=== PATIENT | male | born 1995 | race Asian ===

== ENCOUNTER 2016-10-23 11:40 | Emergency (ER) | payer OTHER ==
[2016-10-23 11:44] VITALS: TEMP 97.2
[2016-10-23] MEDS ORDERED: NS 1,000 ML IV ONE ×2 (11:59→13:18)
[2016-10-23] MEDS ORDERED: ONDANSETRON 4 MG/2 ML VIAL IVP ONE (11:59)
[2016-10-23] MEDS ORDERED: FAMOTIDINE 20 MG/NACL 50 ML IV ONE (11:59)
[2016-10-23] MEDS ORDERED: HYDROmorphONE/DILAUDID 1 MG/ML SYR IVP ONE ×2 (11:59→13:18)
[2016-10-23] MEDS ORDERED: PROMETHAZINE HCL 25 MG/ML VIAL IVP ONE (11:59)
[2016-10-23 12:21] LABS: % IMMATURE GRANULYOCYTES 0.3 % (0.0-1.1); ABSOLUTE IMMATURE GRANULOCYTES 0.02 10^3/uL (0.00-0.10); ADD DIFF? NO; ADD MORPH? NO; ADD SCAN? NO; ATYPICAL LYMPHOCYTE FLAG 30 (0-99); FRAGMENT RBC FLAG 0 (0-99); HEMOGLOBIN 15.9 g/dL (13.7-17.5); LEFT SHIFT FLG 0 (0-99); LIPEMIA HEMOLYSIS FLAG 90 (0-99); MEAN CELL HEMOGLOBIN 30.9 pg (27.9-34.1); MEAN CELL HEMOGLOBIN CONCENTR. 34.6 g/dL (32.4-36.7); MEAN CELL VOLUME 89.5 fL (81.5-99.8); MEAN PLATELET VOLUME 9.3 fL (8.7-11.7); PLATELET CLUMPS FLAG 10 (0-99); PLATELET COUNT 236 10^3/uL (150-400); RED BLOOD CELL COUNT 5.14 10^6/uL (4.40-6.38); RED CELL DISTRIBUTION WIDTH 11.4 % (11.5-15.2)
[2016-10-23 12:39] LABS: ALANINE AMINOTRANSFERASE 55 IU/L (21-72); ALBUMIN 5.1 g/dL (3.5-5.0); ALKALINE PHOSPHATASE 94 IU/L (38-126); ANION GAP 15 mEq/L (8-16); ASPARTATE AMINOTRANSFERASE 62 IU/L (17-59); BILIRUBIN,TOTAL 2.6 mg/dL (0.1-1.4); BILIRUBIN-CONJUGATED 0.3 mg/dL (0.0-0.5); BILIRUBIN-UNCONJUGATED 2.3 mg/dL (0.0-1.1); CALCIUM 10.4 mg/dL (8.5-10.4); CARBON DIOXIDE 29 mEq/l (22-31); CHLORIDE 99 mEq/L (97-110); GLOMERULAR FILTRATION RATE > 60; GLUCOSE 116 mg/dL (70-100); POTASSIUM 4.3 mEq/L (3.5-5.2); SODIUM 143 mEq/L (134-144); TOTAL PROTEIN 8.8 g/dL (6.3-8.2)
[2016-10-23] MEDS ORDERED: HALOPERIDOL LACT 5 MG/ML INJ IVP ONE (13:18)
--- NOTE | 2016-10-23 14:08 | EDPHY ---
H & P Time Seen by Provider: 10/23/16 11:57 HPI/ROS: HPI Vomiting. History of cyclic vomiting. 21-year-old male by private vehicle. Patient has a history marijuana associated cyclic vomiting. Patient reports that since last night is been vomiting uncontrollably. He has not been able to keep any fluids down. He reports this is typical of his previous episodes of cyclic vomiting. He denies any change in diet or foreign travel. He describes having mid to upper crampy abdominal discomfort which again is typical of his previous episodes of cyclic vomiting exacerbation. ROS: Constitutional: No fever, no chills. No weakness. Eyes: No discharge. No changes in vision. ENT: No sore throat. No nasal congestion or rhinorrhea. Respiratory: No cough. No shortness of breath. Cardiac: No chest pain, no palpitations. Gastrointestinal: As above, no diarrhea. Genitourinary: No hematuria. No dysuria or increased frequency with urination. Musculoskeletal: No back pain. No neck pain. No myalgias or arthralgias. Skin: No rashes. Neurological: No headache. No focal weakness or altered sensation. Past medical history: As above. Right-sided nephrectomy as a child, H pylori, gastritis, cyclic vomiting, marijuana smoker. Social history: Marijuana smoker. No alcohol. Here by himself. Physical Exam: General Appearance: Alert, intermittently dry heaving.. This patient is responding to questions appropriately and in full sentences. This patient appears well-hydrated and well-nourished. Eyes: Pupils equal and round no pallor or injection. No lid edema, erythema or injection. Respiratory: There are no retractions, lungs are clear to auscultation with good air movement bilaterally. Cardiovascular: Regular rate and rhythm. No murmur. Gastrointestinal: Abdomen is soft with vague mild tenderness on palpation of the mid and upper abdomen, no masses, bowel sounds normal. No focal tenderness at McBurney's point. No Crystal sign. Neurological: Motor sensory function is grossly intact. Cranial nerves are normal. Gait is normal. Skin: Warm and dry, no rashes. Musculoskeletal: Neck is supple and nontender. Extremities are symmetrical. All joints range without pain or impingement. Psychiatric: No agitation. No depression. Database: EKG: Imaging: Procedures: Emergency department course: IV placed. He was placed on a monitor. He was started on IV normal saline with 1 L to be given over the next hour. He was initially given 0.5 mg of IV hydromorphone, 4 mg of IV Zofran, 20 mg of IV Pepcid and 6.25 mg of IV Phenergan. 1:20 p.m., patient re-evaluated. He states that he is feeling better but is still having nausea and crampy mid abdominal discomfort. I discussed the results of his laboratory work with him. He is refusing an ultrasound because he has a follow-up appointment with his assembler piano early next week and he will likely have a ultrasound at that time as needed. He states again that this presentation in the emergency department is again typical of his previous exacerbations of cyclic vomiting. He reports that his LFTs and bilirubin levels are also slightly elevated in association with these exacerbations. When I asked the patient what helps his cyclic vomiting resolved he responded to me lots of IV pain medication and IV fluids. He was given 1 mg of IV hydromorphone and 2.5 mg of IV Haldol. 2:05 p.m., patient re-evaluated. He is sleeping. He is easily arousable. Repeat abdominal exam he is soft, nontender nondistended. He has been able to take some fluids orally without issue. He does feel comfortable going home at this time. I feel he is safe for discharge. Follow-up and return to emergency department precautions discussed with him. All of his questions were answered. He was discharged in good condition. He is to follow up with his assembler piano early this coming week. He has a scheduled appointment on Wednesday. Differential Diagnosis: The differential diagnosis on this patient includes but is not limited to cyclic vomiting syndrome. Bowel obstruction, volvulus, appendicitis, cholecystitis, pancreatitis unlikely. This represents a partial list of diagnoses considered. These considerations are based on history, physical exam , past history, reassessment and diagnostic testing. Smoking Status: Current some day smoker Constitutional: Initial Vital Signs Temperature (C) 36.2 C 10/23/16 11:41 Heart Rate 68 10/23/16 11:41 Respiratory Rate 16 10/23/16 11:41 Blood Pressure 145/93 H 10/23/16 11:41 O2 Sat (%) 94 10/23/16 11:41 O2 Delivery Mode Room Air Allergies/Adverse Reactions: No Known Allergies Allergy (Verified 05/06/16 09:37) Home Medications: Medication Instructions Recorded Promethazine HCl [Phenergan] 25 mg PO Q6 #10 tab 05/06/16 Ondansetron Odt [Zofran Odt 4 mg 4 mg PO Q4PRN PRN #10 tab 10/23/16 (*)] Promethazine HCl [Phenergan 25mg 25 mg PO Q4-6PRN PRN #12 tab 10/23/16 (*)] Medical Decision Making - Data Points Laboratory Results: Laboratory Results 10/23/16 12:10 10/23/16 12:10 10/23/16 12:10 WBC 7.30 10^3/uL (3.80-9.50) RBC 5.14 10^6/uL (4.40-6.38) Hgb 15.9 g/dL (13.7-17.5) Hct 46.0 % (40.0-51.0) MCV 89.5 fL (81.5-99.8) MCH 30.9 pg (27.9-34.1) MCHC 34.6 g/dL (32.4-36.7) RDW 11.4 L % (11.5-15.2) Plt Count 236 10^3/uL (150-400) MPV 9.3 fL (8.7-11.7) Neut % (Auto) 71.4 % (39.3-74.2) Lymph % (Auto) 23.7 % (15.0-45.0) [place] % (Auto) 3.6 L % (4.5-13.0) Eos % (Auto) 0.7 % (0.6-7.6) Baso % (Auto) 0.3 % (0.3-1.7) Nucleat RBC Rel Count 0.0 % (0.0-0.2) Absolute Neuts (auto) 5.22 10^3/uL (1.70-6.50) Absolute Lymphs (auto) 1.73 10^3/uL (1.00-3.00) Absolute Monos (auto) 0.26 L 10^3/uL (0.30-0.80) Absolute Eos (auto) 0.05 10^3/uL (0.03-0.40) Absolute Basos (auto) 0.02 10^3/uL (0.02-0.10) Absolute Nucleated RBC 0.00 10^3/uL (0-0.01) Immature Gran % 0.3 % (0.0-1.1) Immature Gran # 0.02 10^3/uL (0.00-0.10) Sodium 143 mEq/L (134-144) Potassium 4.3 mEq/L (3.5-5.2) Chloride 99 mEq/L (97-110) Carbon Dioxide 29 mEq/l (22-31) Anion Gap 15 mEq/L (8-16) BUN 20 mg/dL (7-23) Creatinine 1.0 mg/dL (0.7-1.3) Estimated GFR > 60 Glucose 116 H mg/dL (70-100) Calcium 10.4 mg/dL (8.5-10.4) Total Bilirubin 2.6 H mg/dL (0.1-1.4) Conjugated Bilirubin 0.3 mg/dL (0.0-0.5) Unconjugated Bilirubin 2.3 H mg/dL (0.0-1.1) AST 62 H IU/L (17-59) ALT 55 IU/L (21-72) Alkaline Phosphatase 94 IU/L (38-126) Total Protein 8.8 H g/dL (6.3-8.2) Albumin 5.1 H g/dL (3.5-5.0) Lipase 52.0 IU/L (23-300) Medications Given: Discontinued Medications Haloperidol Lactate (Haldol Injection) 2.5 mg IVP EDNOW ONE Stop: 10/23/16 13:19 Last Admin: 10/23/16 13:40 Dose: 2.5 mg Hydromorphone HCl (Dilaudid) 0.5 mg IVP EDNOW ONE Stop: 10/23/16 12:00 Last Admin: 10/23/16 12:28 Dose: 0.5 mg Hydromorphone HCl (Dilaudid) 1 mg IVP EDNOW ONE Stop: 10/23/16 13:19 Last Admin: 10/23/16 13:40 Dose: 1 mg Sodium Chloride (Ns) 1,000 mls @ 0 mls/hr IV ONCE ONE PRN Reason: Wide Open Stop: 01/06/17 12:00 Last Admin: 10/23/16 12:28 Dose: 1,000 mls Famotidine/Sodium Chloride (Pepcid 20 Mg (Premix)) 50 mls @ 200 mls/hr IV EDNOW ONE Stop: 10/23/16 12:13 Last Admin: 10/23/16 12:28 Dose: 50 mls Sodium Chloride (Ns) 1,000 mls @ 0 mls/hr IV ONCE ONE PRN Reason: Wide Open Stop: 10/23/16 13:19 Last Admin: 10/23/16 13:40 Dose: 1,000 mls Ondansetron HCl (Zofran) 4 mg IVP EDNOW ONE Stop: 10/23/16 12:00 Last Admin: 10/23/16 12:29 Dose: 4 mg Promethazine HCl (Phenergan Injection) 6.25 mg IVP EDNOW ONE Stop: 10/23/16 12:00 Last Admin: 10/23/16 12:29 Dose: 6.25 mg Departure - Departure Disposition: Home, Routine, Self-Care Clinical Impression: Vomiting, History of cyclic vomiting syndrome Condition: Good Instructions: Acute Nausea and Vomiting (ED) Additional Instructions: Read and follow provided instructions. Follow-up with your assembler piano early next week as scheduled. Take medication as prescribed only. Return to the emergency department for return of vomiting and inability to keep fluids down despite medications, worsening abdominal pain, fever, bloody stool or other serious concerns. Referrals: NONE *PRIMARY CARE P,. [Primary Care Provider] - As per Instructions Prescriptions: Promethazine HCl [Phenergan 25mg (*)] 25 mg PO Q4-6PRN PRN #12 tab PRN Reason: For Nausea & Vomiting Ondansetron Odt [Zofran Odt 4 mg (*)] 4 mg PO Q4PRN PRN #10 tab PRN Reason: For Nausea & Vomiting
[2016-10-23 14:29] VITALS: BP 105/67; PULSE 16; RESP 45; O2SAT 94
== END 2016-10-23 14:28 | disposition home or self-care (01) ==
DX: R11.10 Vomiting, unspecified (principal); F17.200 Nicotine dependence, unspecified, uncomplicated
CPT/HCPCS: 96365; J1170; J2405; J2550

== ENCOUNTER 2017-04-29 20:27 | Emergency (ER) | payer OTHER ==
[2017-04-29 20:34] VITALS: TEMP 98.8
[2017-04-29] MEDS ORDERED: ONDANSETRON 4 MG/2 ML VIAL ONE (21:12)
[2017-04-29] MEDS ORDERED: NS 1,000 ML IV ONE ×2 (21:19→21:33)
[2017-04-29] MEDS ORDERED: ONDANSETRON 4 MG/2 ML VIAL IVP ONE (21:19)
[2017-04-29] MEDS ORDERED: HYDROmorphONE/DILAUDID 1 MG/ML SYR IVP ONE (21:33)
[2017-04-29 21:41] LABS: % IMMATURE GRANULYOCYTES 0.3 % (0.0-1.1); ABSOLUTE IMMATURE GRANULOCYTES 0.02 10^3/uL (0.00-0.10); ADD DIFF? NO; ADD MORPH? NO; ADD SCAN? NO; ATYPICAL LYMPHOCYTE FLAG 20 (0-99); FRAGMENT RBC FLAG 0 (0-99); HEMATOCRIT 42.4 % (40.0-51.0); HEMOGLOBIN 14.8 g/dL (13.7-17.5); LEFT SHIFT FLG 0 (0-99); LIPEMIA HEMOLYSIS FLAG 90 (0-99); MEAN CELL HEMOGLOBIN 31.6 pg (27.9-34.1); MEAN CELL HEMOGLOBIN CONCENTR. 34.9 g/dL (32.4-36.7); MEAN CELL VOLUME 90.6 fL (81.5-99.8); MEAN PLATELET VOLUME 10.1 fL (8.7-11.7); PLATELET CLUMPS FLAG 0 (0-99); PLATELET COUNT 238 10^3/uL (150-400); RED BLOOD CELL COUNT 4.68 10^6/uL (4.40-6.38); RED CELL DISTRIBUTION WIDTH 11.8 % (11.5-15.2)
[2017-04-29 22:13] LABS: ALANINE AMINOTRANSFERASE 41 IU/L (21-72); ALBUMIN 4.8 g/dL (3.5-5.0); ALKALINE PHOSPHATASE 74 IU/L (38-126); ANION GAP 15 mEq/L (8-16); ASPARTATE AMINOTRANSFERASE 43 IU/L (17-59); BILIRUBIN-CONJUGATED 0.5 mg/dL (0.0-0.5); BILIRUBIN-UNCONJUGATED 2.5 mg/dL (0.0-1.1); CALCIUM 9.9 mg/dL (8.5-10.4); CARBON DIOXIDE 22 mEq/l (22-31); CHLORIDE 105 mEq/L (97-110); CREATININE 0.9 mg/dL (0.7-1.3); GLOMERULAR FILTRATION RATE > 60; GLUCOSE 124 mg/dL (70-100); POTASSIUM 4.1 mEq/L (3.5-5.2); SODIUM 142 mEq/L (134-144); TOTAL PROTEIN 7.7 g/dL (6.3-8.2)
[2017-04-29] MEDS ORDERED: ONDANSETRON 4MG PREPACK#2 BTL TAKEHOME ONE (22:57)
--- NOTE | 2017-04-29 22:57 | EDPHY ---
H & P Stated Complaint: n/v/abd pain x 24 hrs - Medical/Surgical History Hx Asthma: No Hx Chronic Respiratory Disease: No Hx Diabetes: No Hx Cardiac Disease: No Hx Renal Disease: Yes Hx Cirrhosis: No Hx Alcoholism: No Hx HIV/AIDS: No Hx Splenectomy or Spleen Trauma: No Other PMH: Kidney cancer as child, R nephrectomy, H pylori/GASTRITIS, MJ smoker - Social History Smoking Status: Current some day smoker HPI/ROS: Chief complaint: Nausea and vomiting with abdominal pain History of present illness: This is a 22-year-old male who presents to the emergency department for evaluation and treatment of nausea and vomiting with associated abdominal pain. Patient reports the onset of symptoms over the last day. The symptoms have been persistent. He states in addition he has had some mild diarrhea. The vomiting and diarrhea is described as nonbloody. He denies associated fevers or other associated signs or symptoms. Patient does have a history of recurrent abdominal pain with nausea and vomiting. It is thought possibly to be secondary to his marijuana use. However he states he has not used marijuana the last week. He does state this is a typical exacerbation. Review of systems: A 10 point review of systems was obtained and other than described above was negative (Medardo Mack) - Physical Exam Exam: General Appearance: Alert, resting comfortably in bed. Eyes: Pupils equal and round no pallor or injection. ENT, Mouth: Mucous membranes moist. Respiratory: There are no retractions, lungs are clear to auscultation. Cardiovascular: Bradycardic with regular rhythm. Gastrointestinal: Bowel sounds are normal. Abdomen is soft, nondistended, nontender to palpation. Neurological: Alert and oriented x4. Strength and sensation intact and symmetrical. Skin: Warm and dry, no rashes. Musculoskeletal: Neck is supple nontender. Extremities are symmetrical, full range of motion. Psychiatric: Patient is oriented X 3, there is no agitation. (Medardo Mack) Constitutional: Initial Vital Signs Temperature (C) 37.1 C 04/29/17 20:32 Heart Rate 55 L 04/29/17 20:32 Respiratory Rate 18 04/29/17 20:32 Blood Pressure 158/92 H 04/29/17 20:32 O2 Sat (%) 99 04/29/17 20:32 O2 Delivery Mode Room Air Allergies/Adverse Reactions: No Known Allergies Allergy (Verified 07/13/17 20:34) Home Medications: Medication Instructions Recorded NK [No Known Home Meds] 04/29/17 Medical Decision Making - Diagnostics EKG Interpretation: 12 lead EKG is interpreted in Trace master View by emergency department physician. Sinus bradycardia. (Lidia Stokes) ED Course/Re-evaluation: Patient is discussed with my secondary supervising physician Dr. Lidia Stokes. Patient presents to the emergency department for nausea and vomiting with abdominal pain. On presentation he is nontoxic. He has benign serial abdominal exams performed throughout his stay in the emergency room. Laboratory studies are largely unremarkable. He is symptomatically treated with improvement in symptoms. He is tolerating oral challenges without difficulty. He has a history of recurrent nausea and vomiting with abdominal pain. I do not believe further evaluation is warranted in the emergency room. He is comfortable being discharged home. He does have a ux researcher, he cannot remember his name right now but will follow-up with him next week. He is comfortable with this plan. In addition patient is noted to be significantly bradycardic down to 30s. He has no symptoms in relation to this such as fatigue, dizziness, lightheadedness. Review of previous medical records show that he has been significantly bradycardic in the past. EKG is obtained without findings necessitating further emergency department intervention or inpatient management. I have discussed with him his persistent bradycardia. I have recommend he follow up with Cardiology for further evaluation of this. He is given referral information. He has voiced understanding and agreement with this plan as well. Return precautions are given. (Medardo Mack) The patient was evaluated and managed by the physician buyer assistant. I have reviewed this chart and I agree with the findings and plan of care as documented , as indicated by my signature. I am the secondary supervising physician. I have reviewed the patient's EKG. (Lidia Stokes) Differential Diagnosis: Included but not limited to cyclic vomiting syndrome, gastritis, gastroenteritis , biliary tract disease, pancreatitis, colitis (Medardo Mack) - Data Points Laboratory Results: Laboratory Results 04/29/17 21:05 04/29/17 21:05 Medications Given: Discontinued Medications Fentanyl (Sublimaze) 50 mcg IVP EDNOW ONE Stop: 04/29/17 23:43 Last Admin: 04/29/17 23:43 Dose: 50 mcg Hydromorphone HCl (Dilaudid) 0.5 mg IVP EDNOW ONE Stop: 04/29/17 21:34 Last Admin: 04/29/17 22:11 Dose: 0.5 mg Sodium Chloride (Ns) 1,000 mls @ 3,000 mls/hr IV ONCE ONE Stop: 04/29/17 21:38 Last Admin: 04/29/17 21:19 Dose: 1,000 mls Sodium Chloride (Ns) 1,000 mls @ 0 mls/hr IV EDNOW ONE; Wide Open PRN Reason: Protocol Stop: 04/29/17 21:34 Last Admin: 04/29/17 22:11 Dose: 1,000 mls Ondansetron HCl (Zofran) 4 mg IVP EDNOW ONE Stop: 04/29/17 21:20 Last Admin: 04/29/17 21:20 Dose: 4 mg Ondansetron HCl (Zofran Odt 4 Mg Prepack#2) 1 btl TAKEHOME EDNOW ONE Stop: 04/29/17 22:58 Last Admin: 04/30/17 00:28 Dose: Not Given Departure - Departure Disposition: Home, Routine, Self-Care Clinical Impression: Vomiting, Abdominal pain, Bradycardia Condition: Good Instructions: Acute Nausea and Vomiting (ED), Acute Abdominal Pain (ED), Bradycardia (ED) Additional Instructions: Follow-up with your ux researcher for continued evaluation and care Follow-up with Cardiology for your slow pulse rate If symptoms worsen or new symptoms develop return to the emergency room for recheck Referrals: Madai Jurado PA [Primary Care Provider] - As per Instructions Samuel Sears MD [Medical Doctor] - As per Instructions
[2017-04-29] MEDS ORDERED: fentaNYL 100 MCG/2 ML INJ ONE (23:22)
--- NOTE | 2017-04-29 23:26 | CPEKG ---
Heart Rate: 49 RR Interval: 1224 P-R Interval: 152 QRSD Interval: 110 QT Interval: 508 QTC Interval: 459 P [place]: 80 QRS [place]: 79 T Wave [place]: 77 EKG Severity - ABNORMAL ECG - EKG Impression: SINUS BRADYCARDIA EKG Impression: ATRIAL PREMATURE COMPLEX EKG Impression: NONSPECIFIC INTRAVENTRICULAR CONDUCTION DELAY Electronically Signed By: Lidia Stokes 30-Apr-2017 00:27:54
[2017-04-29] MEDS ORDERED: fentaNYL 100 MCG/2 ML INJ IVP ONE (23:42)
[2017-04-30 00:18] VITALS: RESP 14
[2017-04-30 00:19] VITALS: BP 155/94; PULSE 52; O2SAT 100
== END 2017-04-30 00:31 | disposition home or self-care (01) ==
DX: R11.10 Vomiting, unspecified (principal); R10.9 Unspecified abdominal pain; R00.1 Bradycardia, unspecified; F17.200 Nicotine dependence, unspecified, uncomplicated; Z85.528 Personal history of other malignant neoplasm of kidney
CPT/HCPCS: 96374; J1170; J2405; J3010

== ENCOUNTER 2017-06-30 09:41 | Emergency (ER) | payer OTHER ==
[2017-06-30 09:59] VITALS: TEMP 98.4
[2017-06-30] MEDS ORDERED: KETOROLAC 30 MG/1 ML SDV IVP ONE (10:23)
[2017-06-30] MEDS ORDERED: HALOPERIDOL LACT 5 MG/ML INJ IVP ONE (10:23)
[2017-06-30] MEDS ORDERED: NS 1,000 ML IV ONE (10:23)
--- NOTE | 2017-06-30 10:34 | EDPHY ---
HPI/HX/ROS/PE/MDM Narrative: CHIEF COMPLAINT: Nausea and vomiting with lower abdominal pain HPI: The patient is a 22 y/o male who complains of nausea and vomiting associated with lower abdominal pain. He has an extensive history of cyclic vomiting which is thought to be secondary to his marijuana use. He reports the onset of symptoms began last night around 22:00, 12.5 hours ago. The symptoms have been persistent since they began. Denies blood in stool or vomit, fever, recent injury or other pertinent symptoms. Prior medical records reviewed including ED visit on 04/29/17 with MEDARDO Shukla. REVIEW OF SYSTEMS: Aside from elements discussed in the HPI, a comprehensive 10-point review of systems was reviewed and is negative. PMH: Cyclic vomiting SOCIAL HISTORY: Lives in [place] Smoker Marijuana use PHYSICAL EXAM: General:Patient is alert, very uncomfortable. ENT:Eyes are normal to inspection. ENT inspection normal. Neck: Normal inspection. Full range of motion. Respiratory:No respiratory distress. Breath sounds normal bilaterally. Cardiovascular: Regular rate and rhythm. Strong peripheral pulses. Normal cap refill. Abdomen: Diffuse abdominal tenderness. Non-bloody emesis. There are no peritoneal signs. There are normal bowel sounds. Back: Normal to inspection. No tenderness to palpation. Skin: Normal color. No rash. Warm and dry. Extremities: Normal appearance. Full range of motion. Neuro: Oriented x3. Normal motor function. Normal sensory function. Portions of this note were transcribed by an ED scribe. I personally performed the history, physical exam, and medical decision making; and confirm the accuracy of the information in the transcribed note. ED Course: Nurse reports that the patient is more comfortable, but would like to stay a little longer until his abdominal pain improves. Reassessed patient and discussed laboratory results. Return precautions provided ; patient is comfortable with this plan. MDM: The patient is a 22 y/o male who presents with diffuse abdominal tenderness, nausea, and non-bloody emesis. He has an extensive history of cyclic vomiting which is thought to be secondary to his marijuana use. The patient agrees this is very similar presentation to his chronic cyclic vomiting. He was treated with haldol and Toradol and now feels much better. His labs are unremarkable. I see no evidence of pancreatitis, bowel obstruction, bowel perforation, appendicitis. - Data Points Laboratory Results: Laboratory Results 06/30/17 10:17 06/30/17 10:17 06/30/17 06/30/17 10:17 10:17 WBC 10.93 10^3/uL H 10^3/uL (3.80-9.50) RBC 4.92 10^6/uL 10^6/uL (4.40-6.38) Hgb 15.4 g/dL g/dL (13.7-17.5) Hct 44.7 % % (40.0-51.0) MCV 90.9 fL fL (81.5-99.8) MCH 31.3 pg pg (27.9-34.1) MCHC 34.5 g/dL g/dL (32.4-36.7) RDW 11.5 % % (11.5-15.2) Plt Count 203 10^3/uL 10^3/uL (150-400) MPV 9.3 fL fL (8.7-11.7) Neut % (Auto) 80.8 % H % (39.3-74.2) Lymph % (Auto) 16.7 % % (15.0-45.0) [place] % (Auto) 1.8 % L % (4.5-13.0) Eos % (Auto) 0.0 % L % (0.6-7.6) Baso % (Auto) 0.4 % % (0.3-1.7) Nucleat RBC Rel Count 0.0 % % (0.0-0.2) Absolute Neuts (auto) 8.84 10^3/uL H 10^3/uL (1.70-6.50) Absolute Lymphs (auto) 1.82 10^3/uL 10^3/uL (1.00-3.00) Absolute Monos (auto) 0.20 10^3/uL L 10^3/uL (0.30-0.80) Absolute Eos (auto) 0.00 10^3/uL L 10^3/uL (0.03-0.40) Absolute Basos (auto) 0.04 10^3/uL 10^3/uL (0.02-0.10) Absolute Nucleated RBC 0.00 10^3/uL 10^3/uL (0-0.01) Immature Gran % 0.3 % % (0.0-1.1) Immature Gran # 0.03 10^3/uL 10^3/uL (0.00-0.10) Sodium 143 mEq/L mEq/L (134-144) Potassium 4.0 mEq/L mEq/L (3.5-5.2) Chloride 105 mEq/L mEq/L (97-110) Carbon Dioxide 20 mEq/l L mEq/l (22-31) Anion Gap 18 mEq/L H mEq/L (8-16) BUN 12 mg/dL mg/dL (7-23) Creatinine 0.8 mg/dL mg/dL (0.7-1.3) Estimated GFR > 60 Glucose 140 mg/dL H mg/dL (70-100) Calcium 10.3 mg/dL mg/dL (8.5-10.4) Lipase 41 IU/L IU/L (23-300) Medications Given: Discontinued Medications Haloperidol Lactate (Haldol Injection) 2.5 mg IVP EDNOW ONE Stop: 06/30/17 10:24 Last Admin: 06/30/17 10:31 Dose: 2.5 mg Sodium Chloride (Ns) 1,000 mls @ 0 mls/hr IV EDNOW ONE; Wide Open PRN Reason: Protocol Stop: 06/30/17 10:24 Last Admin: 06/30/17 10:31 Dose: 1,000 mls Ketorolac Tromethamine (Toradol) 30 mg IVP EDNOW ONE Stop: 06/30/17 10:24 Last Admin: 06/30/17 10:32 Dose: 30 mg General Time Seen by Provider: 06/30/17 10:21 Initial Vital Signs: Initial Vital Signs Temperature (C) 36.9 C 06/30/17 09:56 Heart Rate 51 L 06/30/17 09:56 Respiratory Rate 16 06/30/17 09:56 Blood Pressure 152/87 H 06/30/17 09:56 O2 Sat (%) 100 06/30/17 09:56 O2 Delivery Mode Room Air Allergies/Adverse Reactions: No Known Allergies Allergy (Verified 06/30/17 10:00) Home Medications: Medication Instructions Recorded NK [No Known Home Meds] 04/29/17 Departure - Departure Disposition: Home, Routine, Self-Care Clinical Impression: Cyclical vomiting Condition: Good Instructions: Abdominal Pain (ED) Additional Instructions: Follow-up with your primary doctor within 72 hours. Return to the Emergency Department for fever, chest pain, shortness of breath, increasing pain or other worsening of condition. Referrals: Madai Jurado PA [Primary Care Provider] - As per Instructions Report Scribed for: Sean Gonzalez Report Scribed by: Lindsay Nesbitt Date of Report: 06/30/17 Time of Report: 10:32
[2017-06-30 10:37] LABS: % IMMATURE GRANULYOCYTES 0.3 % (0.0-1.1); ABSOLUTE IMMATURE GRANULOCYTES 0.03 10^3/uL (0.00-0.10); ADD DIFF? NO; ADD MORPH? NO; ADD SCAN? NO; ATYPICAL LYMPHOCYTE FLAG 10 (0-99); FRAGMENT RBC FLAG 0 (0-99); HEMATOCRIT 44.7 % (40.0-51.0); HEMOGLOBIN 15.4 g/dL (13.7-17.5); LEFT SHIFT FLG 0 (0-99); LIPEMIA HEMOLYSIS FLAG 90 (0-99); MEAN CELL HEMOGLOBIN 31.3 pg (27.9-34.1); MEAN CELL HEMOGLOBIN CONCENTR. 34.5 g/dL (32.4-36.7); MEAN CELL VOLUME 90.9 fL (81.5-99.8); MEAN PLATELET VOLUME 9.3 fL (8.7-11.7); PLATELET CLUMPS FLAG 0 (0-99); PLATELET COUNT 203 10^3/uL (150-400); RED BLOOD CELL COUNT 4.92 10^6/uL (4.40-6.38); RED CELL DISTRIBUTION WIDTH 11.5 % (11.5-15.2)
[2017-06-30 10:52] LABS: ANION GAP 18 mEq/L (8-16); CALCIUM 10.3 mg/dL (8.5-10.4); CARBON DIOXIDE 20 mEq/l (22-31); CHLORIDE 105 mEq/L (97-110); CREATININE 0.8 mg/dL (0.7-1.3); GLOMERULAR FILTRATION RATE > 60; GLUCOSE 140 mg/dL (70-100); SODIUM 143 mEq/L (134-144)
[2017-06-30 14:10] VITALS: BP 110/70; PULSE 77; RESP 18; O2SAT 98
== END 2017-06-30 14:10 | disposition home or self-care (01) ==
DX: G43.A0 Cyclical vomiting, in migraine, not intractable (principal); F17.200 Nicotine dependence, unspecified, uncomplicated; E86.9 Volume depletion, unspecified
CPT/HCPCS: 96374; J1885

== ENCOUNTER 2017-07-31 03:29 | Emergency (ER) | payer OTHER ==
[2017-07-31 03:33] VITALS: RESP 18
[2017-07-31] MEDS ORDERED: ONDANSETRON 4 MG/2 ML VIAL ONE (03:37)
[2017-07-31] MEDS ORDERED: NS 1,000 ML IV ONE ×2 (03:43→03:45)
[2017-07-31] MEDS ORDERED: HALOPERIDOL LACT 5 MG/ML INJ IVP ONE (03:45)
[2017-07-31] MEDS ORDERED: ONDANSETRON 4 MG/2 ML VIAL IVP ONE (03:50)
[2017-07-31] MEDS ORDERED: KETOROLAC 15 MG/1 ML SDV IVP ONE (03:53)
[2017-07-31 04:00] LABS: HEMATOCRIT 49.7 % (40.0-51.0); HEMOGLOBIN 17.6 g/dL (13.7-17.5); MEAN CELL HEMOGLOBIN 31.5 pg (27.9-34.1); MEAN CELL HEMOGLOBIN CONCENTR. 35.4 g/dL (32.4-36.7); MEAN CELL VOLUME 89.1 fL (81.5-99.8); RED BLOOD CELL COUNT 5.58 10^6/uL (4.40-6.38); RED CELL DISTRIBUTION WIDTH 11.8 % (11.5-15.2)
[2017-07-31 04:09] LABS: ALANINE AMINOTRANSFERASE 46 IU/L (21-72); ALBUMIN 5.8 g/dL (3.5-5.0); ALKALINE PHOSPHATASE 98 IU/L (38-126); ANION GAP 23 mEq/L (8-16); ASPARTATE AMINOTRANSFERASE 44 IU/L (17-59); BILIRUBIN,TOTAL 1.8 mg/dL (0.1-1.4); CALCIUM 11.9 mg/dL (8.5-10.4); CARBON DIOXIDE 20 mEq/l (22-31); CHLORIDE 97 mEq/L (97-110); CREATININE 1.4 mg/dL (0.7-1.3); GLOMERULAR FILTRATION RATE > 60; GLUCOSE 154 mg/dL (70-100); POTASSIUM 4.8 mEq/L (3.5-5.2); SODIUM 140 mEq/L (134-144); TOTAL PROTEIN 10.4 g/dL (6.3-8.2)
--- NOTE | 2017-07-31 05:30 | EDPHY ---
H & P Stated Complaint: NAUSEA AND VOMITING FOR 24 HRS NO POT FOR 30 DAYS Time Seen by Provider: 07/31/17 03:44 HPI/ROS: HPI The patient presents with nausea and vomiting which began at about 7:00 a.m. when he awoke from sleep feeling bloated in general. He had a small amount of diarrhea, drink some water and went to his job. He was sent home from work because he was feeling so unwell. He began vomiting at about noon and has had multiple episodes of nonbloody nonbilious emesis. He has been drinking water in between vomiting because he is trying to stay hydrated. He thinks he has been vomiting for about 14 hours now. He does not have any abdominal pain. He has been seen before in the emergency department for similar presentation and has previously been diagnosed with cyclic vomiting as well as H pylori. He was a frequent marijuana user but for the last 1 month he has not used marijuana, smokes cigarettes, or drink alcohol.. REVIEW OF SYSTEMS Constitutional: No fever, no chills. Eyes: No discharge. ENT: No sore throat. Cardiovascular: No chest pain, no palpitations. Respiratory: No cough, no shortness of breath. Gastrointestinal: No abdominal pain, positive for vomiting. Genitourinary: No hematuria. Musculoskeletal: No back pain. Skin: No rashes. Neurological: No headache. PMHx: History of cyclic vomiting Soc Hx: No tobacco, alcohol, marijuana use for the last 1 month PHYSICAL General Appearance: Alert, no distress Eyes: Pupils equal and round no pallor or injection ENT, Mouth: Mucous membranes dry Respiratory: There are no retractions, lungs are clear to auscultation Cardiovascular: Regular rate and rhythm Gastrointestinal: Abdomen is soft and non-tender, no masses, bowel sounds normal Neurological: A&O, moves all extremities Skin: Warm and dry, no rashes Musculoskeletal: Neck is supple non tender Extremities: symmetrical, full range of motion Psychiatric: Patient is oriented X 3, there is no agitation Source: Patient Exam Limitations: No limitations - Personal History Current Tetanus/Diphtheria Vaccine: Yes Current Tetanus Diphtheria and Acellular Pertussis (TDAP): Yes Tetanus Vaccine Date: < 10 YEARS - Medical/Surgical History Hx Asthma: No Hx Chronic Respiratory Disease: No Hx Diabetes: No Hx Cardiac Disease: No Hx Renal Disease: Yes Hx Cirrhosis: No Hx Alcoholism: No Hx HIV/AIDS: No Hx Splenectomy or Spleen Trauma: No Other PMH: Kidney cancer as child, R nephrectomy, H pylori/GASTRITIS, MJ smoker - Social History Smoking Status: Current some day smoker Constitutional: Initial Vital Signs Temperature (C) 36.7 C 07/31/17 03:31 Heart Rate 78 07/31/17 03:31 Respiratory Rate 18 07/31/17 03:31 Blood Pressure 126/85 H 07/31/17 03:31 O2 Sat (%) 988 H 07/31/17 03:31 O2 Delivery Mode Room Air Allergies/Adverse Reactions: No Known Allergies Allergy (Verified 07/31/17 03:33) Home Medications: Medication Instructions Recorded NK [No Known Home Meds] 04/29/17 Medical Decision Making Differential Diagnosis: This is a 22-year-old male with history of cyclic vomiting syndrome who presents with 1 day of abdominal bloating, vomiting. He has not been able to tolerate anything by mouth for the last 14 hours. On exam, he is dehydrated appearing with normal vital signs. His abdominal exam is benign. Differential diagnosis includes cyclic vomiting syndrome, abdominal migraine, gastroenteritis. In the emergency department, the patient was given 2 L of IV fluid for volume depletion, Haldol, Zofran, Toradol with improvement in his symptoms. Labs were checked and did reveal profound leukocytosis, however repeat abdominal exam is benign, I doubt infectious etiology such as appendicitis or diverticulitis. I think this could be related to stress response. He also has signs of dehydration in his labs including an elevated total bilirubin. After about 3 hours, he was ready for discharge, feeling well, able to tolerate fluids by mouth. As he will be able to go home with follow up with his primary care doctor. He has had extensive evaluation by Gastroenterology previously. - Data Points Laboratory Results: Laboratory Results 07/31/17 03:45 07/31/17 03:45 07/31/17 07/31/17 03:45 03:45 WBC 18.02 10^3/uL H 10^3/uL (3.80-9.50) RBC 5.58 10^6/uL 10^6/uL (4.40-6.38) Hgb 17.6 g/dL H g/dL (13.7-17.5) Hct 49.7 % % (40.0-51.0) MCV 89.1 fL fL (81.5-99.8) MCH 31.5 pg pg (27.9-34.1) MCHC 35.4 g/dL g/dL (32.4-36.7) RDW 11.8 % % (11.5-15.2) Plt Count 293 10^3/uL 10^3/uL (150-400) Sodium 140 mEq/L mEq/L (134-144) Potassium 4.8 mEq/L mEq/L (3.5-5.2) Chloride 97 mEq/L mEq/L (97-110) Carbon Dioxide 20 mEq/l L mEq/l (22-31) Anion Gap 23 mEq/L H mEq/L (8-16) BUN 27 mg/dL H mg/dL (7-23) Creatinine 1.4 mg/dL H mg/dL (0.7-1.3) Estimated GFR > 60 Glucose 154 mg/dL H mg/dL (70-100) Calcium 11.9 mg/dL H mg/dL (8.5-10.4) Phosphorus 5.9 mg/dL H mg/dL (2.5-4.5) Total Bilirubin 1.8 mg/dL H mg/dL (0.1-1.4) AST 44 IU/L IU/L (17-59) ALT 46 IU/L IU/L (21-72) Alkaline Phosphatase 98 IU/L IU/L (38-126) Total Protein 10.4 g/dL H g/dL (6.3-8.2) Albumin 5.8 g/dL H g/dL (3.5-5.0) Lipase 40 IU/L IU/L (23-300) Medications Given: Discontinued Medications Haloperidol Lactate (Haldol Injection) 2.5 mg IVP EDNOW ONE Stop: 07/31/17 03:46 Last Admin: 07/31/17 03:48 Dose: 2.5 mg Sodium Chloride (Ns) 1,000 mls @ 0 mls/hr IV ONCE ONE PRN Reason: Wide Open Stop: 07/31/17 03:44 Last Admin: 07/31/17 03:53 Dose: 1,000 mls Sodium Chloride (Ns) 1,000 mls @ 0 mls/hr IV EDNOW ONE; Wide Open PRN Reason: Protocol Stop: 07/31/17 03:46 Last Admin: 07/31/17 03:46 Dose: 1,000 mls Ketorolac Tromethamine (Toradol) 15 mg IVP EDNOW ONE Stop: 07/31/17 03:54 Last Admin: 07/31/17 03:55 Dose: 15 mg Ondansetron HCl (Zofran) 4 mg IVP EDNOW ONE Stop: 07/31/17 03:51 Last Admin: 07/31/17 03:50 Dose: 4 mg Departure - Departure Disposition: Home, Routine, Self-Care Clinical Impression: Dehydration Leukocytosis Qualifiers: Leukocytosis type: unspecified Qualified Code(s): D72.829 - Elevated white blood cell count, unspecified Condition: Good Instructions: Acute Nausea and Vomiting (ED) Additional Instructions: Please take only clear liquids by mouth until your feeling better. Then you can take a bland diet. Referrals: UNKNOWN,NAME [Other] - As per Instructions
[2017-07-31] MEDS ORDERED: FAMOTIDINE 20 MG/NACL 50 ML IV ONE (05:46)
[2017-07-31] MEDS ORDERED: FAMOTIDINE 20 MG/2 ML SDV ONE (05:47)
[2017-07-31 05:53] VITALS: PULSE 58; O2SAT 97
[2017-07-31 06:45] VITALS: BP 116/64; TEMP 98.2
== END 2017-07-31 06:45 | disposition home or self-care (01) ==
DX: E86.0 Dehydration (principal); D72.829 Elevated white blood cell count, unspecified; E86.9 Volume depletion, unspecified; F17.200 Nicotine dependence, unspecified, uncomplicated; Z85.528 Personal history of other malignant neoplasm of kidney
CPT/HCPCS: 96365; J1885; J2405

== ENCOUNTER 2017-10-02 13:13 | Emergency (ER) | payer OTHER ==
[2017-10-02] MEDS ORDERED: NS 1,000 ML IV ONE ×2 (14:16→14:54)
[2017-10-02] MEDS ORDERED: ONDANSETRON 4 MG/2 ML VIAL IVP ONE ×2 (14:16→14:54)
[2017-10-02 14:19] LABS: % IMMATURE GRANULYOCYTES 0.3 % (0.0-1.1); ABSOLUTE IMMATURE GRANULOCYTES 0.03 10^3/uL (0.00-0.10); ADD DIFF? NO; ADD MORPH? NO; ADD SCAN? NO; ATYPICAL LYMPHOCYTE FLAG 0 (0-99); FRAGMENT RBC FLAG 0 (0-99); HEMATOCRIT 43.9 % (40.0-51.0); HEMOGLOBIN 15.3 g/dL (13.7-17.5); LEFT SHIFT FLG 0 (0-99); LIPEMIA HEMOLYSIS FLAG 90 (0-99); MEAN CELL HEMOGLOBIN 31.8 pg (27.9-34.1); MEAN CELL HEMOGLOBIN CONCENTR. 34.9 g/dL (32.4-36.7); MEAN CELL VOLUME 91.3 fL (81.5-99.8); MEAN PLATELET VOLUME 9.2 fL (8.7-11.7); PLATELET CLUMPS FLAG 0 (0-99); PLATELET COUNT 217 10^3/uL (150-400); RED BLOOD CELL COUNT 4.81 10^6/uL (4.40-6.38); RED CELL DISTRIBUTION WIDTH 11.8 % (11.5-15.2)
[2017-10-02 14:47] LABS: ANION GAP 18 mEq/L (8-16); CALCIUM 10.1 mg/dL (8.5-10.4); CARBON DIOXIDE 26 mEq/l (22-31); CHLORIDE 101 mEq/L (97-110); CREATININE 0.9 mg/dL (0.7-1.3); GLOMERULAR FILTRATION RATE > 60; GLUCOSE 116 mg/dL (70-100); POTASSIUM 4.7 mEq/L (3.5-5.2); SODIUM 145 mEq/L (134-144)
--- NOTE | 2017-10-02 14:50 | EDPHY ---
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 He may he complains of periumbilical abdominal pain 3/10. Nonradiating. He denies any fever. Denies chest pain or shortness of breath. Denies urinary symptoms. Main complaint periumbilical pain with nausea vomiting. Past Medical History: Cyclic vomiting syndrome in the setting of marijuana use. Past Surgical History: Kidney removal due to childhood kidney cancer status post support, chemotherapy Social History: Denies daily use drugs alcohol tobacco products. No marijuana in 3 months. Family History: Noncontributory ROS REVIEW OF SYSTEMS: A comprehensive 10 point review of systems is otherwise negative aside from elements mentioned in the history of present illness. Exam Constitutional appears well nontoxic, triage nursing summary reviewed, vital signs reviewed, awake/alert. Eyes normal conjunctivae and sclera, EOMI, PERRLA. HENT normal inspection, atraumatic, moist mucus membranes, no epistaxis, neck supple/ no meningismus, no raccoon eyes. Respiratory clear to auscultation bilaterally, normal breath sounds, no respiratory distress, no wheezing. Cardiovascular rate normal, regular rhythm, no murmur, no edema, distal pulses normal. Gastrointestinal soft, tender palpation periumbilical, no rebound, no guarding , normal bowel sounds, no distension, no pulsatile mass. Genitourinary no CVA tenderness. Musculoskeletal no midline vertebral tenderness, full range of motion, no calf swelling, no tenderness of extremities, no meningismus, good pulses, neurovascularly intact. Skin pink, warm, & dry, no rash, skin atraumatic. Neurologic awake, alert and oriented x 3, AAOx3, moves all 4 extremities equally, motor intact, sensory intact, CN II-XII intact, normal cerebellar, normal vision, normal speech. Psychiatric normal mood/affect. Heme/Lymph/Immune no lymphadenopathy. Differential diagnosis includes but is not limited to and in no particular order : Bowel obstruction, appendicitis, gallbladder disease, diverticulitis, colitis , enteritis, perforated viscus, gastritis, GERD, esophagitis, urinary tract infection, pyelonephritis, kidney stones Medical Decision Making: Plan for this patient IV establishment with IV fluid bolus, Zofran for nausea, CT scan abdomen pelvis with IV contrast with p.o. contrast as patient has extremely thin to help identify appendix. Re-evaluation: CT scan abdomen pelvis with IV contrast shows no acute inflammatory process called to me by Dr. Calderon. 175: I did re-evaluate this patient this time is resting comfortably feels much better after IV fluids and nausea medicine. Re-examination is abdomen is soft nontender there is no guarding or peritoneal signs. Patient's blood work has been reviewed. 1838: This patient p.o. challenge well. No vomiting. Feeling better. Drug screen positive for marijuana. I highly recommend the patient he stops smoking marijuana as this is probably causing nausea vomiting and abdominal pain. CT scan and blood work reviewed. He is feeling better. Allowed to go home with a limited supply of Zofran. Source: Patient - Personal History Current Tetanus Diphtheria and Acellular Pertussis (TDAP): Unsure Tetanus Vaccine Date: < 10 YEARS - Medical/Surgical History Hx Asthma: No Hx Chronic Respiratory Disease: No Hx Diabetes: No Hx Cardiac Disease: No Hx Renal Disease: Yes Hx Cirrhosis: No Hx Alcoholism: No Hx HIV/AIDS: No Hx Splenectomy or Spleen Trauma: No Other PMH: Kidney cancer as child, R nephrectomy, H pylori/GASTRITIS, MJ smoker - Social History Smoking Status: Current some day smoker Constitutional: Initial Vital Signs Temperature (C) 36.6 C 10/02/17 13:15 Heart Rate 63 10/02/17 13:15 Respiratory Rate 16 10/02/17 13:15 Blood Pressure 141/101 H 10/02/17 13:15 O2 Sat (%) 97 10/02/17 13:15 O2 Delivery Mode Room Air Allergies/Adverse Reactions: No Known Allergies Allergy (Verified 10/02/17 13:22) Home Medications: Medication Instructions Recorded Ondansetron HCl [Zofran] 4 mg PO Q4-6PRN PRN #10 tablet 10/02/17 Medical Decision Making - Diagnostics Imaging Results: Imaging Impressions Abdomen CT 10/02/17 14:55 Impression: Distended urinary bladder. Otherwise normal without evidence of metastatic renal cell carcinoma or bowel obstruction. Results called and discussed with Joao Joseph MD, at 10/02/2017 17:52 General information for patients regarding this examination can be found at [email or web address]. If you have questions or comments about this report, please contact me at [phone] (hospital) or [phone] (cell). - Data Points Laboratory Results: Laboratory Results 10/02/17 14:10 10/02/17 14:10 10/02/17 10/02/17 10/02/17 18:07 14:10 14:10 WBC RBC Hgb Hct MCV MCH MCHC RDW Plt Count MPV Neut % (Auto) Lymph % (Auto) [place] % (Auto) Eos % (Auto) Baso % (Auto) Nucleat RBC Rel Count Absolute Neuts (auto) Absolute Lymphs (auto) Absolute Monos (auto) Absolute Eos (auto) Absolute Basos (auto) Absolute Nucleated RBC Immature Gran % Immature Gran # Sodium 145 mEq/L H mEq/L (134-144) Potassium 4.7 mEq/L mEq/L (3.5-5.2) Chloride 101 mEq/L mEq/L (97-110) Carbon Dioxide 26 mEq/l mEq/l (22-31) Anion Gap 18 mEq/L H mEq/L (8-16) BUN 17 mg/dL mg/dL (7-23) Creatinine 0.9 mg/dL mg/dL (0.7-1.3) Estimated GFR > 60 Glucose 116 mg/dL H mg/dL (70-100) Calcium 10.1 mg/dL mg/dL (8.5-10.4) Total Bilirubin 2.1 mg/dL H mg/dL (0.1-1.4) Conjugated Bilirubin 0.3 mg/dL mg/dL (0.0-0.5) Unconjugated Bilirubin 1.8 mg/dL H mg/dL (0.0-1.1) AST 44 IU/L IU/L (17-59) ALT 37 IU/L IU/L (21-72) Alkaline Phosphatase 77 IU/L IU/L (38-126) Total Protein 8.5 g/dL H g/dL (6.3-8.2) Albumin 5.3 g/dL H g/dL (3.5-5.0) Lipase 36 IU/L IU/L (23-300) Urine Color YELLOW Urine Appearance CLEAR Urine pH 6.0 (5.0-7.5) Ur Specific [place] > 1.035 H (1.002-1.030) Urine Protein 1+ H (NEGATIVE) Urine Ketones 1+ H (NEGATIVE) Urine Blood NEGATIVE (NEGATIVE) Urine Nitrate NEGATIVE (NEGATIVE) Urine Bilirubin NEGATIVE (NEGATIVE) Urine Urobilinogen NEGATIVE EU EU (0.2-1.0) Ur Leukocyte Esterase NEGATIVE (NEGATIVE) Urine RBC 1-3 /hpf /hpf (0-3) Urine WBC 1-3 /hpf /hpf (0-3) Ur Epithelial Cells NONE SEEN /lpf /lpf (NONE-1+) Hyaline Casts 1-5 /lpf /lpf (0-1) Urine Mucus TRACE /lpf /lpf (NONE-1+) Urine Glucose NEGATIVE (NEGATIVE) Urine Opiates Screen NEGATIVE (NEGATIVE) Urine Barbiturates NEGATIVE (NEGATIVE) Ur Phencyclidine Scrn NEGATIVE (NEGATIVE) Ur Amphetamine Screen NEGATIVE (NEGATIVE) U Benzodiazepines Scrn NEGATIVE (NEGATIVE) Urine Cocaine Screen NEGATIVE (NEGATIVE) U Marijuana (THC) Screen NON-NEGATIVE H (NEGATIVE) 10/02/17 14:10 WBC 10.90 10^3/uL H 10^3/uL (3.80-9.50) RBC 4.81 10^6/uL 10^6/uL (4.40-6.38) Hgb 15.3 g/dL g/dL (13.7-17.5) Hct 43.9 % % (40.0-51.0) MCV 91.3 fL fL (81.5-99.8) MCH 31.8 pg pg (27.9-34.1) MCHC 34.9 g/dL g/dL (32.4-36.7) RDW 11.8 % % (11.5-15.2) Plt Count 217 10^3/uL 10^3/uL (150-400) MPV 9.2 fL fL (8.7-11.7) Neut % (Auto) 87.6 % H % (39.3-74.2) Lymph % (Auto) 9.2 % L % (15.0-45.0) [place] % (Auto) 2.6 % L % (4.5-13.0) Eos % (Auto) 0.0 % L % (0.6-7.6) Baso % (Auto) 0.3 % % (0.3-1.7) Nucleat RBC Rel Count 0.0 % % (0.0-0.2) Absolute Neuts (auto) 9.56 10^3/uL H 10^3/uL (1.70-6.50) Absolute Lymphs (auto) 1.00 10^3/uL 10^3/uL (1.00-3.00) Absolute Monos (auto) 0.28 10^3/uL L 10^3/uL (0.30-0.80) Absolute Eos (auto) 0.00 10^3/uL L 10^3/uL (0.03-0.40) Absolute Basos (auto) 0.03 10^3/uL 10^3/uL (0.02-0.10) Absolute Nucleated RBC 0.00 10^3/uL 10^3/uL (0-0.01) Immature Gran % 0.3 % % (0.0-1.1) Immature Gran # 0.03 10^3/uL 10^3/uL (0.00-0.10) Sodium Potassium Chloride Carbon Dioxide Anion Gap BUN Creatinine Estimated GFR Glucose Calcium Total Bilirubin Conjugated Bilirubin Unconjugated Bilirubin AST ALT Alkaline Phosphatase Total Protein Albumin Lipase Urine Color Urine Appearance Urine pH Ur Specific [place] Urine Protein Urine Ketones Urine Blood Urine Nitrate Urine Bilirubin Urine Urobilinogen Ur Leukocyte Esterase Urine RBC Urine WBC Ur Epithelial Cells Hyaline Casts Urine Mucus Urine Glucose Urine Opiates Screen Urine Barbiturates Ur Phencyclidine Scrn Ur Amphetamine Screen U Benzodiazepines Scrn Urine Cocaine Screen U Marijuana (THC) Screen Medications Given: Discontinued Medications Haloperidol Lactate (Haldol Injection) 2.5 mg IVP EDNOW ONE Stop: 10/02/17 16:29 Last Admin: 10/02/17 16:33 Dose: 2.5 mg Sodium Chloride (Ns) 1,000 mls @ 0 mls/hr IV ONCE ONE PRN Reason: Wide Open Stop: 10/02/17 14:17 Last Admin: 10/02/17 14:19 Dose: 1,000 mls Sodium Chloride (Ns) 1,000 mls @ 0 mls/hr IV EDNOW ONE; Wide Open PRN Reason: Protocol Stop: 10/02/17 14:55 Last Admin: 10/02/17 15:02 Dose: Not Given Ondansetron HCl (Zofran) 4 mg IVP EDNOW ONE Stop: 10/02/17 14:17 Last Admin: 10/02/17 14:19 Dose: 4 mg Ondansetron HCl (Zofran) 4 mg IVP EDNOW ONE Stop: 10/02/17 14:55 Last Admin: 10/02/17 15:02 Dose: Not Given Promethazine HCl (Phenergan) 6.25 mg IVP EDNOW ONE Stop: 10/02/17 15:47 Last Admin: 10/02/17 15:50 Dose: 6.25 mg Departure - Departure Disposition: Home, Routine, Self-Care Clinical Impression: Nausea and vomiting Qualifiers: Vomiting type: unspecified Vomiting Intractability: non-intractable Qualified Code(s): R11.2 - Nausea with vomiting, unspecified Condition: Good Instructions: Acute Nausea and Vomiting (ED) Additional Instructions: 1. Please return to the emergency room if there is worsening abdominal pain fever vomiting. 2. [place] diet over the next 24-48 hours. 3. I provided you with a prescription for Zofran for nausea. Referrals: NOT,SURE [Other] - As per Instructions Prescriptions: Ondansetron HCl [Zofran] 4 mg PO Q4-6PRN PRN #10 tablet PRN Reason: Nausea/Vomiting, Use 1st
[2017-10-02 15:05] LABS: ALBUMIN 5.3 g/dL (3.5-5.0); BILIRUBIN,TOTAL 2.1 mg/dL (0.1-1.4); BILIRUBIN-CONJUGATED 0.3 mg/dL (0.0-0.5); BILIRUBIN-UNCONJUGATED 1.8 mg/dL (0.0-1.1); TOTAL PROTEIN 8.5 g/dL (6.3-8.2)
[2017-10-02] MEDS ORDERED: PROMETHAZINE HCL 25 MG/ML INJ IVP ONE (15:46)
[2017-10-02] MEDS ORDERED: HALOPERIDOL LACT 5 MG/ML INJ IVP ONE (16:28)
[2017-10-02] MEDS ORDERED: IOPAMIDOL (ISOVUE-300) 100 ML BTL ONE (16:40)
[2017-10-02 17:33] VITALS: O2SAT 94
[2017-10-02 18:17] LABS: COLOR YELLOW; LEUKOCYTE ESTERASE,URINE NEGATIVE (NEGATIVE); NITRITE,URINE NEGATIVE (NEGATIVE)
[2017-10-02 18:28] LABS: MUCUS TRACE /lpf (NONE-1+)
[2017-10-02 19:00] VITALS: BP 123/63; PULSE 80; RESP 16; TEMP 99.1
== END 2017-10-02 18:59 | disposition home or self-care (01) ==
DX: R11.2 Nausea with vomiting, unspecified (principal); E86.9 Volume depletion, unspecified; F17.200 Nicotine dependence, unspecified, uncomplicated; Z85.528 Personal history of other malignant neoplasm of kidney
CPT/HCPCS: 80305; 96374; J1630; J2405; J2550; Q9967

== ENCOUNTER 2017-11-14 08:54 | Emergency (ER) | payer OTHER ==
[2017-11-14] MEDS ORDERED: NS 1,000 ML IV ONE (09:22)
[2017-11-14] MEDS ORDERED: LORazepam 2 MG/ML INJ IVP ONE (09:22)
--- NOTE | 2017-11-14 09:26 | EDPHY ---
H & P Time Seen by Provider: 11/14/17 08:58 HPI/ROS: CHIEF COMPLAINT: Abdominal pain, vomiting HISTORY OF PRESENT ILLNESS: 22-year-old male presents to the emergency department by private vehicle complaining of epigastric abdominal pain and vomiting. The patient has a history of similar symptoms. 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 He has had Helicobacter and pylori which was treated with antibiotics a few years ago. He smokes marijuana daily. He rarely drinks alcohol. He states his symptoms began yesterday afternoon with abdominal pain and diarrhea and that has been vomiting since 6:00 p.m. yesterday. Has not urinated today. No chest pain or difficulty breathing. No reported fever. No reported trauma. REVIEW OF SYSTEMS: Constitutional: No fever, no chills. Eyes: No double or blurry vision. ENT: No sore throat. Respiratory: No cough, no shortness of breath. Cardiac: No chest pain. Gastrointestinal: Abdominal pain, vomiting as above. Diarrhea. Genitourinary: No dysuria. Musculoskeletal: No neck or back pain. Skin: No rashes. Neurological: No headache. 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 Afebrile. Eyes: Pupils equal and round. Extraocular motions are all intact. ENT: Mouth: Mucous membranes appears dry. Respiratory: No wheezing, rhonchi, or rales, lungs are clear to auscultation. Cardiovascular: Regular rate and rhythm. Gastrointestinal: Abdomen is soft. Diffusely tender to palpate especially in the epigastric area however. No rebound, guarding or masses noted. No CVA tenderness bilaterally. Well-healed surgical scar noted from the right CVA area to the right upper quadrant of the abdomen. Neurological: Alert and oriented x 3, cranial nerves II through XII grossly intact Skin: Warm and dry, no rashes. Musculoskeletal: Nontender to palpate along the cervical, thoracic or lumbar spine. Neck is supple. Extremities: Full range of motion and no peripheral edema. Psychiatric: Patient is oriented X 3, there is no agitation. Constitutional: Initial Vital Signs Temperature (C) 36.4 C 11/14/17 09:00 Heart Rate 88 11/14/17 09:00 Respiratory Rate 20 11/14/17 09:00 Blood Pressure 150/101 H 11/14/17 09:00 O2 Sat (%) 95 11/14/17 09:00 O2 Delivery Mode Room Air Allergies/Adverse Reactions: No Known Allergies Allergy (Verified 10/02/17 13:22) Home Medications: Medication Instructions Recorded NK [No Known Home Meds] 11/14/17 Medical Decision Making ED Course/Re-evaluation: 22-year-old male presents with multiple episodes of nausea vomiting. Patient was given 2.5 mg of IV Haldol which she has had in the past and he had complete resolution of his symptoms. He was tolerating p. o. fluids and was discharged home. He was discouraged from continued use of marijuana. I do not think imaging studies are indicated. The patient's abdomen is benign. Differential Diagnosis: Including but not limited to cyclical vomiting syndrome, gastritis, dehydration , electrolyte abnormality - Data Points Laboratory Results: Laboratory Results 11/14/17 09:28 11/14/17 09:28 11/14/17 11/14/17 09:28 09:28 WBC 9.68 10^3/uL H 10^3/uL (3.80-9.50) RBC 5.37 10^6/uL 10^6/uL (4.40-6.38) Hgb 16.8 g/dL g/dL (13.7-17.5) Hct 47.5 % % (40.0-51.0) MCV 88.5 fL fL (81.5-99.8) MCH 31.3 pg pg (27.9-34.1) MCHC 35.4 g/dL g/dL (32.4-36.7) RDW 11.8 % % (11.5-15.2) Plt Count 255 10^3/uL 10^3/uL (150-400) MPV 9.3 fL fL (8.7-11.7) Neut % (Auto) 80.8 % H % (39.3-74.2) Lymph % (Auto) 15.2 % % (15.0-45.0) [place] % (Auto) 3.4 % L % (4.5-13.0) Eos % (Auto) 0.1 % L % (0.6-7.6) Baso % (Auto) 0.3 % % (0.3-1.7) Nucleat RBC Rel Count 0.0 % % (0.0-0.2) Absolute Neuts (auto) 7.82 10^3/uL H 10^3/uL (1.70-6.50) Absolute Lymphs (auto) 1.47 10^3/uL 10^3/uL (1.00-3.00) Absolute Monos (auto) 0.33 10^3/uL 10^3/uL (0.30-0.80) Absolute Eos (auto) 0.01 10^3/uL L 10^3/uL (0.03-0.40) Absolute Basos (auto) 0.03 10^3/uL 10^3/uL (0.02-0.10) Absolute Nucleated RBC 0.00 10^3/uL 10^3/uL (0-0.01) Immature Gran % 0.2 % % (0.0-1.1) Immature Gran # 0.02 10^3/uL 10^3/uL (0.00-0.10) Sodium 141 mEq/L mEq/L (135-145) Potassium 4.3 mEq/L mEq/L (3.5-5.2) Chloride 96 mEq/L L mEq/L (97-110) Carbon Dioxide 25 mEq/l mEq/l (22-31) Anion Gap 20 mEq/L H mEq/L (8-16) BUN 24 mg/dL H mg/dL (7-23) Creatinine 1.0 mg/dL mg/dL (0.7-1.3) Estimated GFR > 60 Glucose 147 mg/dL H mg/dL (70-100) Calcium 11.2 mg/dL H mg/dL (8.5-10.4) Phosphorus 4.4 mg/dL mg/dL (2.5-4.5) Total Bilirubin 2.6 mg/dL H mg/dL (0.1-1.4) Conjugated Bilirubin 0.4 mg/dL mg/dL (0.0-0.5) Unconjugated Bilirubin 2.2 mg/dL H mg/dL (0.0-1.1) AST 32 IU/L IU/L (17-59) ALT 35 IU/L IU/L (21-72) Alkaline Phosphatase 95 IU/L IU/L (38-126) Total Protein 9.5 g/dL H g/dL (6.3-8.2) Albumin 5.7 g/dL H g/dL (3.5-5.0) Lipase 43 IU/L IU/L (23-300) Medications Given: Discontinued Medications Haloperidol Lactate (Haldol Injection) 2.5 mg IVP EDNOW ONE Stop: 11/14/17 09:42 Last Admin: 11/14/17 09:47 Dose: 2.5 mg Sodium Chloride (Ns) 1,000 mls @ 0 mls/hr IV ONCE ONE PRN Reason: Wide Open Stop: 11/14/17 09:23 Last Admin: 11/14/17 09:48 Dose: 1,000 mls Departure - Departure Disposition: Home, Routine, Self-Care Clinical Impression: Vomiting Qualifiers: Vomiting type: unspecified Vomiting Intractability: non-intractable Nausea presence: with nausea Qualified Code(s): R11.2 - Nausea with vomiting, unspecified Condition: Good Instructions: Acute Nausea and Vomiting (ED) Additional Instructions: Clear liquids and then slowly advance diet as tolerated. Referrals: Johnathon Frost MD, FACG [Medical Doctor] - As per Instructions ( [facility] on-call)
[2017-11-14 09:36] LABS: PLATELET COUNT 255 10^3/uL (150-400)
[2017-11-14] MEDS ORDERED: HALOPERIDOL LACT 5 MG/ML INJ IVP ONE (09:41)
[2017-11-14 11:09] VITALS: RESP 16
[2017-11-14 12:09] VITALS: BP 109/51; PULSE 55; TEMP 97.9; O2SAT 98
== END 2017-11-14 12:07 | disposition home or self-care (01) ==
PROC: 3E0337Z Introduction of Electrolytic and Water Balance Substance into Peripheral Vein, Percutaneous Approach (ICD-10-PCS; principal; 2017-11-14)
DX: R11.2 Nausea with vomiting, unspecified (principal); F17.200 Nicotine dependence, unspecified, uncomplicated; Z85.528 Personal history of other malignant neoplasm of kidney
CPT/HCPCS: 96374; J1630; J2060

== ENCOUNTER 2017-12-19 14:19 | Emergency (ER) | payer OTHER ==
[2017-12-19 14:28] VITALS: TEMP 97.5
[2017-12-19] MEDS ORDERED: METOCLOPRAMIDE 10 MG/2 ML VIAL IVP ONE (14:36)
[2017-12-19] MEDS ORDERED: HALOPERIDOL LACT 5 MG/ML INJ IVP ONE (14:36)
--- NOTE | 2017-12-19 14:36 | EDPHY ---
H & P Stated Complaint: vomiting since 3am - Personal History Current Tetanus/Diphtheria Vaccine: Unsure Current Tetanus Diphtheria and Acellular Pertussis (TDAP): Unsure Tetanus Vaccine Date: < 10 YEARS - Medical/Surgical History Hx Asthma: No Hx Chronic Respiratory Disease: No Hx Diabetes: No Hx Cardiac Disease: No Hx Renal Disease: Yes Hx Cirrhosis: No Hx Alcoholism: No Hx HIV/AIDS: No Hx Splenectomy or Spleen Trauma: No Other PMH: Kidney cancer as child, R nephrectomy, H pylori/GASTRITIS, MJ smoker , cycliv vomit syndrome - Social History Smoking Status: Current some day smoker Time Seen by Provider: 12/19/17 14:29 HPI/ROS: CHIEF COMPLAINT: Epigastric abdominal pain, nausea, vomiting, history of similar HISTORY OF PRESENT ILLNESS: 22-year-old male arrives via private vehicle complaining of intractable nausea, vomiting since 3:00 a.m. Today. He has a prior history of similar. 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 He smokes marijuana daily. Intermittent alcohol use. He has been seen emergency department previously for similar. This feels like similar. No trauma. No fall. REVIEW OF SYSTEMS: A ten point review of systems was performed and is negative with the exception of the items mentioned in the HPI PAST MEDICAL & SURGICAL HISTORY: Renal cell carcinoma a child. Did SOCIAL HISTORY: Daily marijuana use. Intermittent alcohol use. PHYSICAL EXAM (Prior to examination, patient consented to physical exam, hands were washed and my usual and customary physical exam procedures followed) 1) GENERAL: Well-developed, well-nourished, alert and oriented. Appears to be in no acute distress. 2) HEAD: Normocephalic, atraumatic 3) HEENT: Pupils equal, round, reactive to light bilaterally. Sclera anicteric. [Nasopharynx, oropharynx, clear, no lesions. Dry mucous membrane 4) NECK: Full range of motion, no meningeal signs. 5) LUNGS: Clear auscultation bilaterally, no wheezes, no rhonchi, no retractions. 6) HEART: Regular rate and rhythm, no murmur, no heave, no gallop. 7) ABDOMEN: Guarding abdomen tender to palpation epigastrium and left upper quadrant. Negative Crystal's, negative McBurney's., 8) MUSCULOSKELETAL: Moving all extremities, no focal areas of tenderness, no obvious trauma. No peripheral edema or discoloration. 9) BACK: No CVA tenderness, no midline vertebral tenderness, no fluctuance, no step-off, no obvious trauma, no visual or palpable abnormality. 10) SKIN: No rash, no petechiae. DIFFERENTIAL DIAGNOSIS: [My differential diagnosis includes, but is not limited to, acute appendicitis, acute cholecystitis, bowel obstruction, acute pancreatitis, testicular torsion, gastritis and urinary tract infection. The patient understands that this diagnosis is provisional and can never be 100% accurate. This is a partial list of diagnoses considered. These considerations are based on history, physical exam, past history and reassessment. (Mely Moreau) Constitutional: Initial Vital Signs Temperature (C) 36.4 C 12/19/17 14:26 Heart Rate 70 12/19/17 14:26 Respiratory Rate 20 12/19/17 14:26 Blood Pressure 118/85 H 12/19/17 14:26 O2 Sat (%) 99 12/19/17 14:26 O2 Delivery Mode Room Air Allergies/Adverse Reactions: No Known Allergies Allergy (Verified 12/19/17 14:26) Home Medications: Medication Instructions Recorded NK [No Known Home Meds] 11/14/17 Medical Decision Making ED Course/Re-evaluation: 2:36 p.m.: Old medical records reviewed, he has responded well in the past to IV Haldol, IV hydration. Care of patient under supervision of secondary supervising physician Dr Anderson with whom I discussed case and who evaluated patient 3:45 p.m.: Re-evaluation, sleeping requesting that we allow him to sleep 4:20 p.m. re-evaluation, sleeping, easily awoken, states that he is feeling improvement "I feel like I have life in me now". Abdomen is soft no guarding no rebound. Discussed his laboratory results. Doubt acute surgical abdominal pathology such as acute appendicitis. I do not think that imaging studies are currently indicated. I recommended marijuana cessation. Recommend he follow up with his pile driving nozzleman. He feels comfortable being discharged all questions and concerns addressed by myself. (Mely Moreau) Other Provider: PHYSICIAN DOCUMENTATION: The patient was evaluated and managed by the Physician Electrical Technology Instructor and myself. I have reviewed the chart and agree with the findings and plan of care as documented. In addition, I examined the patient myself at 1545. History confirmed as symptoms started today at 3:00 a.m.. Physical findings as follows: Abdomen soft and nontender. Appears comfortable now, and request that he is allowed to"just rest." I am the secondary supervising physician. (Zoran Anderson) - Data Points Laboratory Results: Laboratory Results 12/19/17 14:50 12/19/17 14:50 12/19/17 12/19/17 14:50 14:50 WBC 8.09 10^3/uL 10^3/uL (3.80-9.50) RBC 5.12 10^6/uL 10^6/uL (4.40-6.38) Hgb 15.9 g/dL g/dL (13.7-17.5) Hct 46.3 % % (40.0-51.0) MCV 90.4 fL fL (81.5-99.8) MCH 31.1 pg pg (27.9-34.1) MCHC 34.3 g/dL g/dL (32.4-36.7) RDW 11.5 % % (11.5-15.2) Plt Count 257 10^3/uL 10^3/uL (150-400) MPV 9.6 fL fL (8.7-11.7) Neut % (Auto) 79.5 % H % (39.3-74.2) Lymph % (Auto) 17.2 % % (15.0-45.0) Addison % (Auto) 2.7 % L % (4.5-13.0) Eos % (Auto) 0.0 % L % (0.6-7.6) Baso % (Auto) 0.4 % % (0.3-1.7) Nucleat RBC Rel Count 0.0 % % (0.0-0.2) Absolute Neuts (auto) 6.43 10^3/uL 10^3/uL (1.70-6.50) Absolute Lymphs (auto) 1.39 10^3/uL 10^3/uL (1.00-3.00) Absolute Monos (auto) 0.22 10^3/uL L 10^3/uL (0.30-0.80) Absolute Eos (auto) 0.00 10^3/uL L 10^3/uL (0.03-0.40) Absolute Basos (auto) 0.03 10^3/uL 10^3/uL (0.02-0.10) Absolute Nucleated RBC 0.00 10^3/uL 10^3/uL (0-0.01) Immature Gran % 0.2 % % (0.0-1.1) Immature Gran # 0.02 10^3/uL 10^3/uL (0.00-0.10) Sodium 143 mEq/L mEq/L (135-145) Potassium 4.2 mEq/L mEq/L (3.5-5.2) Chloride 100 mEq/L mEq/L (97-110) Carbon Dioxide 23 mEq/l mEq/l (22-31) Anion Gap 20 mEq/L H mEq/L (8-16) BUN 18 mg/dL mg/dL (7-23) Creatinine 1.0 mg/dL mg/dL (0.7-1.3) Estimated GFR > 60 Glucose 149 mg/dL H mg/dL (70-100) Calcium 10.9 mg/dL H mg/dL (8.5-10.4) Phosphorus 4.1 mg/dL mg/dL (2.5-4.5) Total Bilirubin 2.4 mg/dL H mg/dL (0.1-1.4) Conjugated Bilirubin 0.4 mg/dL mg/dL (0.0-0.5) Unconjugated Bilirubin 2.0 mg/dL H mg/dL (0.0-1.1) AST 28 IU/L IU/L (17-59) ALT 43 IU/L IU/L (21-72) Alkaline Phosphatase 95 IU/L IU/L (38-126) Total Protein 9.0 g/dL H g/dL (6.3-8.2) Albumin 5.4 g/dL H g/dL (3.5-5.0) Lipase 46 IU/L IU/L (23-300) Medications Given: Discontinued Medications Haloperidol Lactate (Haldol Injection) 2.5 mg IVP EDNOW ONE Stop: 12/19/17 14:37 Last Admin: 12/19/17 14:50 Dose: 2.5 mg Sodium Chloride (Ns) 2,000 mls @ 0 mls/hr IV ONCE ONE PRN Reason: Wide Open Stop: 12/19/17 14:38 Last Admin: 12/19/17 14:50 Dose: 2,000 mls Metoclopramide HCl (Reglan Injection) 10 mg IVP EDNOW ONE Stop: 12/19/17 14:37 Last Admin: 12/19/17 15:37 Dose: 10 mg Departure - Departure Disposition: Home, Routine, Self-Care Clinical Impression: Volume depletion Vomiting Qualifiers: Vomiting type: cyclical vomiting Vomiting Intractability: non-intractable Nausea presence: with nausea Qualified Code(s): G43.A0 - Cyclical vomiting, not intractable Condition: Good Instructions: Acute Nausea and Vomiting (ED) Additional Instructions: Seek immediate medical attention if you develop new or worsening symptoms, if you develop fevers, chills, inability to tolerate oral intake or any other symptoms that concerns you. Referrals: Hanny Degroto MD [Medical Doctor] - 1-2 days without fail
[2017-12-19] MEDS ORDERED: NS 2,000 ML IV ONE (14:37)
[2017-12-19 15:42] LABS: PLATELET COUNT 257 10^3/uL (150-400)
[2017-12-19 15:44] VITALS: BP 102/50; PULSE 55; RESP 18; O2SAT 96
== END 2017-12-19 16:31 | disposition home or self-care (01) ==
DX: G43.A0 Cyclical vomiting, in migraine, not intractable (principal); E86.9 Volume depletion, unspecified; F17.200 Nicotine dependence, unspecified, uncomplicated; Z85.528 Personal history of other malignant neoplasm of kidney
CPT/HCPCS: 96374; J1630; J2765

== ENCOUNTER 2018-03-16 13:41 | Emergency (ER) | payer OTHER ==
[2018-03-16] MEDS ORDERED: ONDANSETRON 4 MG/2 ML VIAL ONE (14:03)
--- NOTE | 2018-03-16 14:07 | EDPHY ---
H & P Stated Complaint: N/V Time Seen by Provider: 03/16/18 14:07 - Personal History Current Tetanus Diphtheria and Acellular Pertussis (TDAP): Unsure Tetanus Vaccine Date: < 10 YEARS - Medical/Surgical History Hx Asthma: No Hx Chronic Respiratory Disease: No Hx Diabetes: No Hx Cardiac Disease: No Hx Renal Disease: Yes Hx Cirrhosis: No Hx Alcoholism: No Hx HIV/AIDS: No Hx Splenectomy or Spleen Trauma: No Other PMH: Kidney cancer as child, R nephrectomy, H pylori/GASTRITIS, MJ smoker , cycliv vomit syndrome - Social History Smoking Status: Current some day smoker Constitutional: Initial Vital Signs Temperature (C) 36.6 C 03/16/18 13:51 Heart Rate 61 03/16/18 13:51 Respiratory Rate 20 03/16/18 13:51 Blood Pressure 124/93 H 03/16/18 13:51 O2 Sat (%) 99 03/16/18 13:51 O2 Delivery Mode Room Air Allergies/Adverse Reactions: No Known Allergies Allergy (Verified 03/16/18 13:51) Home Medications: Medication Instructions Recorded Ondansetron Odt [Zofran Odt 4 mg 4 mg PO Q4 PRN #10 tab 03/16/18 (RX)] Medical Decision Making ED Course/Re-evaluation: CHIEF COMPLAINT: Vomiting. HISTORY OF PRESENT ILLNESS: This is a 23 y/o male with history of cyclic vomiting presenting with vomiting and diarrhea onset this morning. He has been evaluated for similar symptoms in this emergency department several times in the past. He has followed up with GI. He states he has had frequent gastrointestinal upset since he had H. Pylori in 2011. Initially, he gets a stomach ache and diarrhea, and then begins vomiting. He notes upper abdominal bloating during these episodes. He denies any hematemesis, hematochezia, or melena. No fever. He denies any unusual foods or international travel recently and his symptoms are consistent with his prior presentations of cyclic vomiting. REVIEW OF SYSTEMS: A 10 point review of systems was performed and is negative with the exception of the elements mentioned in the history of present illness. PHYSICAL EXAM: HR, BP, O2 Sat, RR. Temp noted General Appearance: Alert, well hydrated, appropriate, and non-toxic appearing. Head: Atraumatic without scalp tenderness or obvious injury Eyes: Pupils equal, round, reactive to light and accommodation, EOMI, no trauma , no injection. Ears: Clear bilaterally, no perforation, normal landmarks Nose: Atraumatic, no rhinorrhea, clear. Throat: There is no erythema or exudates, no lesions, normal tonsils, mucus membranes moist. Neck: Supple, nontender, no lymphadenopathy. Respiratory: No retractions, no distress, no wheezes, and no accessory muscle use. Lungs are clear to auscultation bilaterally. Cardiovascular: Regular rate and rhythm, no murmurs, rubs, or gallops. Good capillary refill all extremities. Gastrointestinal: Epigastric tenderness. Abdomen is soft, non-distended, no masses, no rebound, no guarding, no peritoneal signs. Musculoskeletal: Normal active ROM of all extremities, atraumatic. Neurological: Alert, appropriate, and interactive. Nonfocal neuro exam. Skin: No rashes, good turgor, no nodules on palpation. Past medical history: Kidney cancer as child s/p R nephrectomy. H pylori gastritis. Cyclic vomiting syndrome Past surgical history: Right nephrectomy. Family history: Noncontributory. Social history: Single. Lives in [place]. Employed. Marijuana user. Followed by GI [facility] the [facility]. DIFFERENTIAL DIAGNOSIS: Differential diagnosis for the patient's vomiting includes but is not limited to cyclical vomiting syndrome, gastritis, dehydration, electrolyte abnormality. MEDICAL DECISION MAKIN23 y/o male with history of cyclic vomiting presents with vomiting and diarrhea onset this morning. Epigastric tenderness on exam. Plan to administer 4mg IV Zofran, 6.25mg IV Phenergan, 10mg IV Reglan, and 1L IV NS for symptom relief. Patient's presentation is consistent with prior episodes of cyclic vomiting. I do not see any necessity for imaging studies at this time. Reassessed patient. He is feeling better following medication administration. Plan to discharge home in good condition. He will follow up with GI or his primary care provider. He is comfortable with this plan. - Data Points Medications Given: Discontinued Medications Sodium Chloride (Ns) 1,000 mls @ 0 mls/hr IV ONCE ONE PRN Reason: Wide Open Stop: 03/16/18 14:10 Last Admin: 03/16/18 14:10 Dose: 1,000 mls Metoclopramide HCl (Reglan Injection) 10 mg IVP EDNOW ONE Stop: 03/16/18 14:20 Last Admin: 03/16/18 14:22 Dose: 10 mg Ondansetron HCl (Zofran) 4 mg IVP EDNOW ONE Stop: 03/16/18 14:10 Last Admin: 03/16/18 14:10 Dose: 4 mg Promethazine HCl (Phenergan) 6.25 mg IVP ONCE ONE Stop: 03/16/18 14:20 Last Admin: 03/16/18 14:22 Dose: 6.25 mg Departure - Departure Disposition: Home, Routine, Self-Care Clinical Impression: Nausea & vomiting Qualifiers: Vomiting type: cyclical vomiting Vomiting Intractability: non-intractable Qualified Code(s): G43.A0 - Cyclical vomiting, not intractable Condition: Good Instructions: Acute Nausea and Vomiting (ED) Additional Instructions: 1. Follow up with your primary care provider or GI specialist this week. 2. Stay well hydrated. Introduce bland foods as tolerated. 3. Return to the emergency department for fever, severe pain, uncontrollable vomiting or diarrhea, or other worsening of condition. 4. Take Zofran as prescribed as needed for nausea. Referrals: aHnny Degroot MD [Medical Doctor] - As per Instructions Prescriptions: Ondansetron Odt [Zofran Odt 4 mg (RX)] 4 mg PO Q4 PRN #10 tab PRN Reason: Nausea/Vomiting, Use 1st Report Scribed for: Lonnie Keith Report Scribed by: Tracy Rose Date of Report: 03/16/18 Time of Report: 14:18
[2018-03-16] MEDS ORDERED: NS 1,000 ML IV ONE (14:09)
[2018-03-16] MEDS ORDERED: ONDANSETRON 4 MG/2 ML VIAL IVP ONE (14:09)
[2018-03-16] MEDS ORDERED: PROMETHAZINE HCL 25 MG/ML INJ IVP ONE (14:19)
[2018-03-16] MEDS ORDERED: METOCLOPRAMIDE 10 MG/2 ML VIAL IVP ONE (14:19)
[2018-03-16 15:40] VITALS: BP 101/55
== END 2018-03-16 16:22 | disposition home or self-care (01) ==
DX: G43.A0 Cyclical vomiting, in migraine, not intractable (principal); F17.200 Nicotine dependence, unspecified, uncomplicated; Z85.528 Personal history of other malignant neoplasm of kidney
CPT/HCPCS: 96374; J2405; J2550; J2765

== ENCOUNTER 2018-04-17 06:02 | Emergency (ER) | payer OTHER ==
[2018-04-17] MEDS ORDERED: ONDANSETRON 4 MG/2 ML VIAL ONE (06:24)
[2018-04-17] MEDS ORDERED: ONDANSETRON 4 MG/2 ML VIAL IVP ONE (06:24)
[2018-04-17] MEDS ORDERED: NS 1,000 ML IV ONE ×2 (06:24→06:42)
[2018-04-17] MEDS ORDERED: FAMOTIDINE 20 MG/NACL 50 ML IV ONE (06:42)
[2018-04-17] MEDS ORDERED: KETOROLAC 15 MG/1 ML SDV IVP ONE (06:42)
[2018-04-17] MEDS ORDERED: LORazepam 2 MG/ML INJ IVP ONE (06:43)
[2018-04-17 06:49] LABS: PLATELET COUNT 229 10^3/uL (150-400)
--- NOTE | 2018-04-17 07:01 | EDPHY ---
H & P Stated Complaint: N/V X 12 HRS Source: Patient Exam Limitations: No limitations - Personal History Current Tetanus Diphtheria and Acellular Pertussis (TDAP): Unsure Tetanus Vaccine Date: < 10 YEARS - Medical/Surgical History Hx Asthma: No Hx Chronic Respiratory Disease: No Hx Diabetes: No Hx Cardiac Disease: No Hx Renal Disease: Yes Hx Cirrhosis: No Hx Alcoholism: No Hx HIV/AIDS: No Hx Splenectomy or Spleen Trauma: No Other PMH: Kidney cancer as child, R nephrectomy, H pylori/GASTRITIS, MJ smoker , cycliv vomit syndrome - Social History Smoking Status: Light smoker Time Seen by Provider: 04/17/18 06:31 HPI/ROS: HPI The patient presents with nausea, vomiting, abdominal pain, diarrhea. His symptoms started yesterday afternoon after eating a lunch of 2 slices of pizza. 10 min following this, he developed a stomach ache and then had diarrhea with vomiting. Stomach pain is diffuse, achy, intermittent, moderate in severity. This is continued throughout the last day. He has been unable to sleep because of the nausea and vomiting. He says he is out of his antiemetics at home so he did not take anything. He has not been able to take down water. He says this feels like his usual episode of cyclic vomiting. REVIEW OF SYSTEMS Constitutional: No fever, no chills. Eyes: No discharge. ENT: No sore throat. Cardiovascular: No chest pain, no palpitations. Respiratory: No cough, no shortness of breath. Gastrointestinal: See HPI Genitourinary: No hematuria. Musculoskeletal: No back pain. Skin: No rashes. Neurological: No headache. PMHx: Cyclic vomiting syndrome by report, followed by Gastroenterology, right nephrectomy, history of H pylori positivity Soc Hx: Uses marijuana PHYSICAL General Appearance: Alert, no distress Eyes: Pupils equal and round no pallor or injection ENT, Mouth: Mucous membranes dry Respiratory: There are no retractions, lungs are clear to auscultation Cardiovascular: Regular rate and rhythm Gastrointestinal: Abdomen is soft and non-tender, no masses, bowel sounds normal Neurological: A&O, moves all extremities Skin: Warm and dry, no rashes Musculoskeletal: Neck is supple non tender Extremities: symmetrical, full range of motion Psychiatric: Patient is oriented X 3, there is no agitation (Riguzzi,Tiffany) Constitutional: Initial Vital Signs Temperature (C) 36.4 C 04/17/18 06:06 Heart Rate 50 L 04/17/18 06:06 Respiratory Rate 16 04/17/18 06:06 Blood Pressure 129/82 H 04/17/18 06:06 O2 Sat (%) 95 04/17/18 06:06 O2 Delivery Mode Room Air Allergies/Adverse Reactions: No Known Allergies Allergy (Verified 03/16/18 13:51) Home Medications: Medication Instructions Recorded Ondansetron Odt [Zofran Odt 4 mg 4 mg PO Q4 PRN #30 tab 04/17/18 (*)] Medical Decision Making Differential Diagnosis: 23-year-old man with history of cyclic vomiting syndrome presents with 1 day of nausea, vomiting, diffuse abdominal pain. On exam, vital signs are normal, mucous membranes are dry, abdominal exam is benign. Differential diagnosis includes cyclic vomiting syndrome with exacerbation, dehydration, renal failure. In the emergency department, IV line was established, patient was given antiemetics. Labs were checked and were unremarkable, demonstrating only a mild leukocytosis. At change of shift, at 7:00 a.m., the case is signed out to the oncoming provider Dr. Stokes pending the patient's reassessment. (Tiffany Last) Other Provider: I assumed care of this patient at 7:00 a.m.. He was asleep when I 1st went to evaluate him at approximately 7:30 a.m.. I did not awaken him. At 9:20 a.m. He was evaluated by me. He is now awake and able to ambulate independently. He is not having any further abdominal pain. He has not vomited during the 2-1/ 2 hours he has been in my care. I feel that he is safe for discharge. (Lidia Stokes) - Data Points Laboratory Results: Laboratory Results 04/17/18 06:20 04/17/18 06:20 04/17/18 04/17/18 06:20 06:20 WBC 12.46 10^3/uL H 10^3/uL (3.80-9.50) RBC 5.28 10^6/uL 10^6/uL (4.40-6.38) Hgb 16.5 g/dL g/dL (13.7-17.5) Hct 48.6 % % (40.0-51.0) MCV 92.0 fL fL (81.5-99.8) MCH 31.3 pg pg (27.9-34.1) MCHC 34.0 g/dL g/dL (32.4-36.7) RDW 11.8 % % (11.5-15.2) Plt Count 229 10^3/uL 10^3/uL (150-400) MPV 9.7 fL fL (8.7-11.7) Neut % (Auto) 83.4 % H % (39.3-74.2) Lymph % (Auto) 14.0 % L % (15.0-45.0) Perkins % (Auto) 2.0 % L % (4.5-13.0) Eos % (Auto) 0.0 % L % (0.6-7.6) Baso % (Auto) 0.3 % % (0.3-1.7) Nucleat RBC Rel Count 0.0 % % (0.0-0.2) Absolute Neuts (auto) 10.39 10^3/uL H 10^3/uL (1.70-6.50) Absolute Lymphs (auto) 1.74 10^3/uL 10^3/uL (1.00-3.00) Absolute Monos (auto) 0.25 10^3/uL L 10^3/uL (0.30-0.80) Absolute Eos (auto) 0.00 10^3/uL L 10^3/uL (0.03-0.40) Absolute Basos (auto) 0.04 10^3/uL 10^3/uL (0.02-0.10) Absolute Nucleated RBC 0.00 10^3/uL 10^3/uL (0-0.01) Immature Gran % 0.3 % % (0.0-1.1) Immature Gran # 0.04 10^3/uL 10^3/uL (0.00-0.10) Sodium 140 mEq/L mEq/L (135-145) Potassium 4.7 mEq/L mEq/L (3.3-5.0) Chloride 104 mEq/L mEq/L (97-110) Carbon Dioxide 20 mEq/l L mEq/l (22-31) Anion Gap 16 mEq/L mEq/L (8-16) BUN 22 mg/dL mg/dL (7-23) Creatinine 0.9 mg/dL mg/dL (0.7-1.3) Estimated GFR > 60 Glucose 118 mg/dL H mg/dL (70-100) Calcium 10.8 mg/dL H mg/dL (8.5-10.4) Phosphorus 4.5 mg/dL mg/dL (2.5-4.5) Total Bilirubin 2.4 mg/dL H mg/dL (0.1-1.4) Conjugated Bilirubin 0.4 mg/dL mg/dL (0.0-0.5) Unconjugated Bilirubin 2.0 mg/dL H mg/dL (0.0-1.1) AST 52 IU/L IU/L (17-59) ALT 53 IU/L IU/L (21-72) Alkaline Phosphatase 109 IU/L IU/L (38-126) Total Protein 8.8 g/dL H g/dL (6.3-8.2) Albumin 5.3 g/dL H g/dL (3.5-5.0) Medications Given: Discontinued Medications Sodium Chloride (Ns) 1,000 mls @ 0 mls/hr IV ONCE ONE PRN Reason: Wide Open Stop: 04/17/18 06:25 Last Admin: 04/17/18 06:27 Dose: 1,000 mls Famotidine/Sodium Chloride (Pepcid 20 Mg (Premix)) 50 mls @ 200 mls/hr IV EDNOW ONE Stop: 04/17/18 06:56 Last Admin: 04/17/18 06:49 Dose: 50 mls Sodium Chloride (Ns) 1,000 mls @ 0 mls/hr IV EDNOW ONE; Wide Open PRN Reason: Protocol Stop: 04/17/18 06:43 Last Admin: 04/17/18 06:50 Dose: 1,000 mls Ketorolac Tromethamine (Toradol) 15 mg IVP EDNOW ONE Stop: 04/17/18 06:43 Last Admin: 04/17/18 06:48 Dose: 15 mg Lorazepam (Ativan Injection) 1 mg IVP EDNOW ONE Stop: 04/17/18 06:44 Last Admin: 04/17/18 06:50 Dose: 1 mg Ondansetron HCl (Zofran) 4 mg IVP EDNOW ONE Stop: 04/17/18 06:25 Last Admin: 04/17/18 06:27 Dose: 4 mg Promethazine HCl (Phenergan) 12.5 mg IVP ONCE ONE Stop: 04/17/18 07:22 Last Admin: 04/17/18 07:28 Dose: 12.5 mg Departure - Departure Disposition: Home, Routine, Self-Care Clinical Impression: Nausea & vomiting Qualifiers: Vomiting type: unspecified Vomiting Intractability: non-intractable Qualified Code(s): R11.2 - Nausea with vomiting, unspecified Condition: Good Instructions: Acute Nausea and Vomiting (ED) Referrals: Gastroenterology [facility] [Provider Group] - As per Instructions Prescriptions: Ondansetron Odt [Zofran Odt 4 mg (*)] 4 mg PO Q4 PRN #30 tab PRN Reason: Nausea/Vomiting, Can'T Take Po
[2018-04-17] MEDS ORDERED: PROMETHAZINE HCL 25 MG/ML INJ IVP ONE (07:21)
[2018-04-17 09:41] VITALS: BP 110/64
== END 2018-04-17 09:46 | disposition home or self-care (01) ==
DX: R11.2 Nausea with vomiting, unspecified (principal); E86.9 Volume depletion, unspecified; F17.200 Nicotine dependence, unspecified, uncomplicated; Z87.448 Personal history of other diseases of urinary system
CPT/HCPCS: 96365; J1885; J2060; J2405; J2550

== ENCOUNTER 2019-03-13 05:20 | Observation (INO) | payer OTHER ==
--- NOTE | 2019-03-13 05:27 | EDPHY ---
H & P Source: Patient - Personal History Tetanus Vaccine Date: < 10 YEARS - Medical/Surgical History Hx Asthma: No Hx Chronic Respiratory Disease: No Hx Diabetes: No Hx Cardiac Disease: No Hx Renal Disease: Yes Hx Cirrhosis: No Hx Alcoholism: No Hx HIV/AIDS: No Hx Splenectomy or Spleen Trauma: No Other PMH: Kidney cancer as child, R nephrectomy, H pylori/GASTRITIS, MJ smoker , cycliv vomit syndrome - Social History Smoking Status: Light smoker Time Seen by Provider: 03/13/19 05:27 HPI/ROS: HPI CHIEF COMPLAINT: Nausea vomiting. HISTORY OF PRESENT ILLNESS: This is a 24-year-old male, he has a history of cyclic vomiting syndrome, presents to the emergency room with vomiting. States this started around 3:00 a.m.. He states he flew back from [place] however is plane got deferred to [place]. He then arrived in [facility] around 3:00 a.m.. Shortly after arriving he started developing vomiting. Nausea. No diarrhea. Diffuse abdominal cramping. Denies chest pain or shortness of breath. He states he is vomiting clear secretions and yellow. No blood. No fever. This consistent with his previous episodes of cyclic vomiting. Past Medical History: Significant medical history for cyclic vomiting syndrome , right nephrectomy Past Surgical History: Right nephrectomy Social History: Smokes marijuana regularly. Denies other illicit drugs or alcohol. Family History: Noncontributory ROS REVIEW OF SYSTEMS: 10 Systems were reviewed and negative with the exception of the elements mentioned in the history of present illness. Exam Constitutional triage nursing summary reviewed, vital signs reviewed, awake/ alert. Eyes normal conjunctivae and sclera, EOMI, PERRLA. HENT normal inspection, atraumatic, moist mucus membranes, no epistaxis, neck supple/ no meningismus, no raccoon eyes. Respiratory clear to auscultation bilaterally, normal breath sounds, no respiratory distress, no wheezing. Cardiovascular rate normal, regular rhythm, no murmur, no edema, distal pulses normal. Gastrointestinal soft, non-tender, no rebound, no guarding, normal bowel sounds, no distension, no pulsatile mass. Genitourinary no CVA tenderness. Musculoskeletal no midline vertebral tenderness, full range of motion, no calf swelling, no tenderness of extremities, no meningismus, good pulses, neurovascularly intact. Skin pink, warm, & dry, no rash, skin atraumatic. Neurologic awake, alert and oriented x 3, AAOx3, moves all 4 extremities equally, motor intact, sensory intact, CN II-XII intact, normal cerebellar, normal vision, normal speech. Psychiatric normal mood/affect. Heme/Lymph/Immune no lymphadenopathy. Differential Diagnosis: Differential diagnosis includes but is not limited to and in no particular order: Cyclic vomiting syndrome, soft tightness, Lanny- Lima tear, Bowel obstruction, appendicitis, gallbladder disease, diverticulitis, colitis, enteritis, perforated viscus, gastritis, GERD, esophagitis, urinary tract infection, pyelonephritis, kidney stones Medical Decision Making: Plan for this patient IV establishment IV fluid bolus 2 L normal saline, IV Haldol, IV Pepcid, and re-evaluate. Re-evaluation: Due to the vomiting I have ordered a KUB however patient is refusing x-ray or CT imaging. Patient reports daily once medications and fluids. 0700AM: Signed over to Dr. Johnson. Patient pending re-eval. Patient at this time sleeping. Patient's bilirubin noted to be elevated however when I trend this it is similar to his previous lab results. Patient this time is sleeping and much improved after meds. However this time refusing any imaging refusing to p.o. Challenge. He states he wants to sleep for the. Plan for re-evaluation. (Joao Joseph) Constitutional: Initial Vital Signs Temperature (C) 36.5 C 03/13/19 05:25 Heart Rate 81 03/13/19 05:25 Respiratory Rate 18 03/13/19 05:25 Blood Pressure 143/83 H 03/13/19 05:25 O2 Sat (%) 100 03/13/19 05:25 O2 Delivery Mode Room Air Allergies/Adverse Reactions: No Known Allergies Allergy (Verified 03/13/19 05:25) Home Medications: Medication Instructions Recorded Ondansetron Odt [Zofran Odt 4 mg 4 mg PO Q4 PRN #30 tab 04/17/18 (*)] Medical Decision Making ED Course/Re-evaluation: 0 700: Patient is signed out to me at change of shift by Dr. Joseph. I went personally re-evaluated the patient. He was lying in bed resting. He was easily arousable. Patient states his stomach was feeling better. He was having decreased nausea. On exam the patient had mild right upper quadrant tenderness to palpation with no rebound or guarding. I reviewed the patient's laboratory studies. His bilirubin was noted to be elevated at 3.0. White count was normal. Anion gap 15. The patient has had elevated bilirubin in the past. I discussed these findings with the patient. I recommend ultrasound imaging was right upper quadrant. I discussed alternative diagnosis to his cyclic vomiting including cholecystitis, cholangitis, hepatitis. After discussion the patient still did not want any imaging today. The patient was competent had capacity to make this decision. (Christina Johnson ) Differential Diagnosis: My differential includes but is not limited to cyclic vomiting syndrome, cholecystitis, cholangitis, pancreatitis, small-bowel obstruction, perforation, peptic ulcer disease (Christina Johnson) - Data Points Laboratory Results: Laboratory Results 03/13/19 05:35 03/13/19 05:35 03/13/19 03/13/19 05:35 05:35 WBC 8.40 10^3/uL 10^3/uL (3.80-9.50) RBC 4.85 10^6/uL 10^6/uL (4.40-6.38) Hgb 15.3 g/dL g/dL (13.7-17.5) Hct 44.9 % % (40.0-51.0) MCV 92.6 fL fL (81.5-99.8) MCH 31.5 pg pg (27.9-34.1) MCHC 34.1 g/dL g/dL (32.4-36.7) RDW 12.3 % % (11.5-15.2) Plt Count 274 10^3/uL 10^3/uL (150-400) MPV 9.2 fL fL (8.7-11.7) Neut % (Auto) 69.5 % % (39.3-74.2) Lymph % (Auto) 26.9 % % (15.0-45.0) Victoria % (Auto) 2.1 % L % (4.5-13.0) Eos % (Auto) 0.4 % L % (0.6-7.6) Baso % (Auto) 0.7 % % (0.3-1.7) Nucleat RBC Rel Count 0.0 % % (0.0-0.2) Absolute Neuts (auto) 5.84 10^3/uL 10^3/uL (1.70-6.50) Absolute Lymphs (auto) 2.26 10^3/uL 10^3/uL (1.00-3.00) Absolute Monos (auto) 0.18 10^3/uL L 10^3/uL (0.30-0.80) Absolute Eos (auto) 0.03 10^3/uL 10^3/uL (0.03-0.40) Absolute Basos (auto) 0.06 10^3/uL 10^3/uL (0.02-0.10) Absolute Nucleated RBC 0.00 10^3/uL 10^3/uL (0-0.01) Immature Gran % 0.4 % % (0.0-1.1) Immature Gran # 0.03 10^3/uL 10^3/uL (0.00-0.10) Sodium 142 mEq/L mEq/L (135-145) Potassium 4.2 mEq/L mEq/L (3.5-5.2) Chloride 105 mEq/L mEq/L (97-110) Carbon Dioxide 22 mEq/l mEq/l (22-31) Anion Gap 15 mEq/L H mEq/L (6-14) BUN 15 mg/dL mg/dL (7-23) Creatinine 0.9 mg/dL mg/dL (0.7-1.3) Estimated GFR > 60 Glucose 116 mg/dL H mg/dL (70-100) Calcium 10.5 mg/dL H mg/dL (8.5-10.4) Total Bilirubin 3.0 mg/dL H mg/dL (0.1-1.4) Conjugated Bilirubin 0.1 mg/dL mg/dL (0.0-0.5) Unconjugated Bilirubin 2.9 mg/dL H mg/dL (0.0-1.1) AST 38 IU/L IU/L (17-59) ALT 31 IU/L IU/L (21-72) Alkaline Phosphatase 81 IU/L IU/L (38-126) Total Protein 8.6 g/dL H g/dL (6.3-8.2) Albumin 5.3 g/dL H g/dL (3.5-5.0) Lipase 46 IU/L IU/L (23-300) Medications Given: Discontinued Medications Diphenhydramine HCl (Benadryl Injection) 25 mg IVP EDNOW ONE Stop: 03/13/19 05:34 Last Admin: 03/13/19 05:45 Dose: 25 mg Famotidine (Pepcid) 20 mg IVP EDNOW ONE Stop: 03/13/19 05:34 Last Admin: 03/13/19 05:44 Dose: 20 mg Haloperidol Lactate (Haldol Injection) 2.5 mg IVP EDNOW ONE Stop: 03/13/19 05:34 Last Admin: 03/13/19 05:43 Dose: 2.5 mg Sodium Chloride (Ns) 1,000 mls @ 0 mls/hr IV EDNOW ONE; Wide Open PRN Reason: Protocol Stop: 03/13/19 05:33 Last Admin: 03/13/19 05:39 Dose: 1,000 mls Sodium Chloride (Ns) 1,000 mls @ 0 mls/hr IV EDNOW ONE; Wide Open PRN Reason: Protocol Stop: 03/13/19 05:33 Last Admin: 03/13/19 05:46 Dose: 1,000 mls Departure - Departure Disposition: Home, Routine, Self-Care Clinical Impression: Nausea & vomiting Qualifiers: Vomiting type: unspecified Vomiting Intractability: non-intractable Qualified Code(s): R11.2 - Nausea with vomiting, unspecified Condition: Good Instructions: Dehydration (ED), Acute Nausea and Vomiting (ED) Additional Instructions: 1. [place] Diet. 2. Rest 3. Stay Well hydrated 4. Return if worse. Referrals: NONE *PRIMARY CARE P,. [Primary Care Provider] - As per Instructions [facility],. [Clinic] - 2-3 days without fail
[2019-03-13] MEDS ORDERED: NS 1,000 ML IV ONE ×2 (05:32)
[2019-03-13] MEDS ORDERED: FAMOTIDINE 20 MG/2 ML SDV IVP ONE (05:33)
[2019-03-13] MEDS ORDERED: HALOPERIDOL LACT 5 MG/ML INJ IVP ONE (05:33)
[2019-03-13 05:48] LABS: PLATELET COUNT 274 10^3/uL (150-400)
[2019-03-13] MEDS ORDERED: PROMETHAZINE HCL 25 MG/ML INJ IVP PRN (11:19)
[2019-03-13] MEDS ORDERED: ONDANSETRON 4 MG/2 ML VIAL IVP PRN (11:19)
[2019-03-13] MEDS ORDERED: ONDANSETRON DISINTEGRATING 4 MG TAB PO PRN (11:19)
[2019-03-13] MEDS ORDERED: ACETAMINOPHEN 325 MG TAB PO PRN (11:19)
[2019-03-13] MEDS ORDERED: LORazepam 2 MG/ML INJ IVP PRN (11:19)
[2019-03-13] MEDS ORDERED: D5W 1/2 NS 1,000 ML IV SCH (11:30)
[2019-03-13] MEDS ORDERED: HYDROmorphONE/DILAUDID 1 MG/ML INJ IVP PRN (14:14)
--- NOTE | 2019-03-13 14:31 | GHP ---
[f rep st] HISTORY AND PHYSICAL DATE OF ADMISSION: 03/13/2019 CHIEF COMPLAINT: Nausea and vomiting. HISTORY OF PRESENT ILLNESS: The patient is a 24-year-old male with a history of cyclic vomiting synd marla, who presented to the emergency room this morning with complaints of vomiting. He states that a round 3:00 a.m. he began vomiting with nausea. He says he has had no diarrhea and no dyspnea, shortn ess of breath, or chest pain. He has had no headache. He also denies any fever. He tells me that t his episode of cyclic vomiting is consistent with his previous episodes of cyclic vomiting. REVIEW OF SYSTEMS: Comprehensive 10-point review of systems is negative other than noted in HPI. PAST MEDICAL HISTORY: Cyclic vomiting syndrome. PAST SURGICAL HISTORY: Right nephrectomy. SOCIAL HISTORY: The patient smokes marijuana on a daily basis. He denies any other illicit drugs or alcohol. FAMILY HISTORY: Reviewed and noncontributory. PHYSICAL EXAMINATION: GENERAL: The patient is lethargic, minimal interaction, oriented. VITAL SIGN S: Afebrile at 36.9, pulse 49, respiratory rate is 18, blood pressure is 126/81. He is saturating 9 7% on room air. HEENT: Normocephalic, atraumatic. Mucosal membranes are dry. Pupils are equal, ro und, reactive to light. No meningismus. RESPIRATORY: Lungs are clear to auscultation bilaterally. No rhonchi or wheezes appreciated. CARDIOVASCULAR: Regular rate and rhythm. No gallop or murmur n oted. No edema. GASTROINTESTINAL: Abdomen nontender. No rebound. No guarding. Bowel sounds are positive. EXTREMITIES: Within normal limits. There is no clubbing or cyanosis noted. SKIN: Warm a nd dry with no rashes or lesions appreciated. NEUROLOGICAL: The patient is focally intact, alert an d oriented. Moves all 4 extremities equally. HOME MEDICATIONS: Zofran. ALLERGIES: None. LABORATORY EVALUATION: Calcium is 10.5. Total bilirubin of 3, unconjugated of 2.9. ASSESSMENT AND PLAN: The patient is a 24-year-old male who has a long-standing history of cyclic vom iting. He tells me that this episode is consistent with his normal presentation of cyclic vomiting. He has been treated with antiemetic medications as well as narcotics and Ativan. His symptoms are s table at this time. He has no further vomiting. We will provide IV hydration to him during this acu te bout of cyclic vomiting. He has been placed on clear liquid diet, and we will continue to support and manage his symptoms. He does have a noted elevated bilirubin. He states that his bilirubin is chronically elevated. Studies and further evaluation have been recommended including an ultrasound, as well as KUB. However, the patient is refusing at this time. He is aware of this abnormality and wants no further evaluation for it. He will be admitted to observation status with further supportiv e management during this hospitalization. /[id number]/MODL
[2019-03-13 15:21] VITALS: BP 130/68
--- NOTE | 2019-03-13 16:05 | ASMTCMCOM ---
CM Note CM Note Notes: Pt has been admitted with nausea and vomiting. He has a hx of cyclic vomiting syndrome. He has a hx of kidney CA as a child and R nephrectomy. Anticipate he will d/c home independent when medically cleared. D/C plan: home independent Date Signed: 03/13/2019 04:04 PM Electronically Signed By:DERRICK Aguirre
--- NOTE | 2019-03-14 12:12 | PDDCSUM ---
Discharge Summary Discharge Summary: Date of Admission: 03/13/2019 Date of Discharge: 03/13/2019 Studies: none Discharge Diagnoses: 1. Acute nausea and vomiting, secondary to 2. Cyclic vomiting syndrome 3. Daily marijuana use 4. Unconjugated hyperbilirubinemia 5. H/o R nephrectomy ? 2/2 kidney cancer, normal renal function Brief Hospital Course: 24yo M with long-standing history of cyclic vomiting presented with acute onset nausea and vomiting consistent with prior episodes of cyclic vomiting syndrome. This is in the setting of daily marijuana use. He was treated supportively with IV fluids, anti-emetics and improved. He was tolerating PO. He was noted to have an elevated unconjugated bilirubin level. This is chronic. He has had US and CT with normal liver and biliary system in the past. He declined to get this worked up any further. I suspect this is due to Gilbert's disease. Medications: Please refer to EMR for complete list.
== END 2019-03-13 19:09 | disposition home or self-care (01) ==
LOC: F1N 09:20
PROVIDERS: ADMIT Family Medicine; ATTEND Internal Medicine
DX: T40.7X1A Poisoning by cannabis (derivatives), accidental (unintentional), initial encounter (principal); F12.288 Cannabis dependence with other cannabis-induced disorder; R11.2 Nausea with vomiting, unspecified; E80.6 Other disorders of bilirubin metabolism; Z90.5 Acquired absence of kidney; Z85.528 Personal history of other malignant neoplasm of kidney
CPT/HCPCS: 96361; 96374; 96375; 99285; G0378; J1200; J1630; J2550

== ENCOUNTER 2019-03-16 04:36 | Emergency (ER) | payer OTHER | END 2019-03-16 10:34 | disposition home or self-care (01) ==